=== PATIENT | male | born 1960 | race Caucasian/White ===

== ENCOUNTER 2017-06-01 09:36 | Inpatient (IN) | payer BC, MEDICAID ==
--- NOTE | 2017-06-01 10:03 | Emergency Department Record ---
History of Present Illness - General Chief Complaint: Headache Migraine Stated Complaint: HEADACHE/DIZZY Time Seen by Provider: 06/01/17 09:49 Source: Patient Mode of Arrival: Ambulatory Limitations: No limitations - History of Present Illness Initial Comments: The patient is here due to a multitude of complaints. He has had 2 weeks of intermittent ISIDRO's, dizziness, weakness, Cp off and on with SOB and balance issues. He states the head pain is mainly over the back of the head at times and does come and go. The dizziness is like the room spinning at times. The patient is coughing up some sputum at times and does have CAMPOS. He does have a hx of Afib and is on Coumadin. MD Complaint: Other Onset/Timin -: Week(s) Onset Description: Gradual Location: Neck Severity: Severe Quality: Throbbing Improves With: Nothing Worsens With: None Associated Symptoms: Nausea Treatments Prior to Arrival: Acetaminophen, Ibuprofen - Related Data Home Medications Medication Instructions Recorded Confirmed Last Taken Amlodipine Besylate [Norvasc] 10 mg PO QHS 06/01/17 06/01/17 Unknown Bumetanide 1 mg PO BID 06/01/17 06/01/17 Unknown Clopidogrel Bisulfate [Plavix] 75 mg PO QAM 06/01/17 06/01/17 06/01/17 Ezetimibe [Zetia] 10 mg PO QHS 06/01/17 06/01/17 Unknown Isosorbide Mononitrate [Imdur] 60 mg PO QAM 06/01/17 06/01/17 06/01/17 Magnesium Oxide 400 mg PO BID 06/01/17 06/01/17 06/01/17 Metformin HCl 500 mg PO QHS 06/01/17 06/01/17 Unknown Potassium Chloride 20 meq PO QAM 06/01/17 06/01/17 06/01/17 Sotalol HCl [Betapace] 80 mg PO BID 06/01/17 06/01/17 06/01/17 Warfarin Sodium [Coumadin] 1 mg PO QHS 06/01/17 06/01/17 Unknown Allergies Allergy/AdvReac Type Severity Reaction Status Date / Time NO KNOWN DRUG ALLERGY Allergy no Uncoded 06/01/17 09:44 allergies Travel Screening - Travel/Exposure Within Last 30 Days Have you traveled within the last 30 days?: No Review of Systems Constitutional: Denies: Chills, Fever Eyes: Denies: Eye discharge ENT: Denies: Congestion Respiratory: Denies: Cough, Dyspnea Past Medical History - SOCIAL HISTORY Smoking Status: Former smoker Alcohol Use: Rare Drug Use: None - RESPIRATORY Hx Respiratory Disorders: Yes Hx COPD: Yes - CARDIOVASCULAR Hx Cardio Disorders: Yes Hx Cardiac Cath: Yes Hx Hypertension: Yes Hx Irregular Heartbeat: Yes (afib) Comment:: High cholesterol - NEURO Hx Neuro Disorders: No - GI Hx GI Disorders: Yes Hx Reflux: Yes - Hx Genitourinary Disorders: No - ENDOCRINE Hx Endocrine Disorders: No - MUSCULOSKELETAL Hx Musculoskeletal Disorders: Yes Hx Back Injury: Yes - PSYCH Hx Psych Problems: No - HEMATOLOGY/ONCOLOGY Hx Hematology/Oncology Disorders: No Family Medical History Any Significant Family History?: No Physical Exam - General General Appearance: Alert, Oriented x3, Cooperative, No acute distress - Head Head exam: Atraumatic, Normocephalic, Normal inspection - Eye Eye exam: Normal appearance, PERRL, EOMI. negative: Nystagmus - ENT Throat exam: Normal inspection. negative: Tonsillar erythema, Tonsillar exudate - Neck Neck exam: Normal inspection, Full ROM. negative: Lymphadenopathy, Meningismus , Tenderness - Respiratory Respiratory exam: Normal lung sounds bilaterally. negative: Respiratory distress - Cardiovascular Cardiovascular Exam: Regular rate, Normal rhythm, Normal heart sounds - GI/Abdominal GI/Abdominal exam: Soft, Normal bowel sounds. negative: Tenderness - Back Back exam: Reports: Normal inspection, Full ROM. Denies: Muscle spasm, Rash noted, Tenderness - Neurological Neurological exam: Alert, Normal gait, Oriented X3, Reflexes normal, Other (Neg Drift and Rhomberg.). negative: Abnormal gait, Altered, Motor sensory deficit Course Vital Signs 06/01/17 09:40 Temperature 97.6 F Pulse Rate 90 Respiratory 24 Rate Blood Pressure 129/71 Pulse Ox 95 - Reevaluation(s) Reevaluation #1: The patient is doing Ok at this time. He denies any new issues or problems. I did discuss the pneumonia with him and the need for admission and he does agree to the plan. I then did discuss the case with Dr. Guillen and he does accept the patient for admission. 06/01/17 11:12 Medical Decision Making - Data Complexity MDM Data: Labs Ordered and/or Reviewed, X-Ray Ordered and/or Reviewed, EKG Ordered and/or Reviewed - Lab Data Result diagrams: 06/01/17 10:00 06/01/17 10:00 - EKG Data -: EKG Interpreted by Me EKG: No Acute Changes, Normal EKG - Radiology Data Radiology results: Report reviewed (CXR: L sided pneumonia with possible R base infiltrate also. Head CT: Neg.) Disposition Disposition: Admit Clinical Impression: Pneumonia Qualifiers: Pneumonia type: due to unspecified organism Laterality: bilateral Lung location : lower lobe of lung Qualified Code(s): J18.9 - Pneumonia, unspecified organism Disposition: Still a Patient at [facility] Decision to Admit: Admit from ER Decision to Admit Date: 06/01/17 Decision to Admit Time: 11:14 Accepting Physician: Wilmer Time Discussed w/Accepting Physician: 11:14 Condition: (2) Stable Time of Disposition: 11:14 Quality - Quality Measures Quality Measures: N/A - Blood Pressure Screening View Details: Yes Does Patient Have Any of the Following: Active Dx of HTN Blood Pressure Classification: Pre-Hypertensive BP Reading Systolic Measurement: 129 Diastolic Measurement: 71 Screening for High Blood Pressure: Patient Exclusion, Hx of HTN [[id number]]
[2017-06-01 10:14] LABS: HEMATOCRIT 40.5 % (42.0-52.0); MEAN CELL VOLUME 90.8 fl (81-97); MEAN CORPUSCULAR HEMOGLOBIN 29.1 pg (27-33); MEAN CORPUSCULAR HGB CONC 32.1 g/dl (32-36); MEAN PLATELET VOLUME 10.3 fl (7.4-10.4); PLATELET COUNT 497 K/uL (130-400); RED BLOOD COUNT 4.46 M/uL (4.40-5.70); RED CELL DISTRIBUTION WIDTH 12.6 % (11.5-14.5)
[2017-06-01 10:23] LABS: BLOOD UREA NITROGEN 10 mg/dL (6-20); CREATININE 0.7 mg/dL (0.7-1.2); EST GLOMERULAR FILTRATION RATE > 60 mL/min; WHITE BLOOD COUNT W/O DIFF 29.6 K/uL (4.2-12.2)
[2017-06-01 10:26] LABS: GLUCOSE,RANDOM 116 mg/dL (74-109)
[2017-06-01 10:29] LABS: CREATINE PHOSPHOKINASE 23 U/L (39-308)
[2017-06-01 10:31] LABS: CKMB < 1.0 ng/mL (<6.73)
[2017-06-01] MEDS ORDERED: CEFTRIAXONE SODIUM 1 GM in 0.9 % SODIUM CHLORIDE 100ML 100 ML IVPB ONE (10:43)
[2017-06-01 10:50] LABS: INR 1.7; PARTIAL THROMBOPLASTIN TIME 49.9 SECONDS (24.5-39.1); PROTHROMBIN TIME (PATIENT) 18.5 SECONDS (9.5-12.1)
[2017-06-01] MEDS ORDERED: ACETAMINOPHEN 325 MG TAB PO ONE (10:56)
[2017-06-01] MEDS ORDERED: AZITHROMYCIN 500 MG in 0.9 % SODIUM CHLORIDE 250ML 250 ML IVPB ONE (10:56)
[2017-06-01] MEDS ORDERED: ACETAMINOPHEN 500 MG TABLET PO PRN (12:23)
[2017-06-01] MEDS ORDERED: CEFTRIAXONE SODIUM 1 GM in 0.9 % SODIUM CHLORIDE 100ML 100 ML IVPB SCH (12:23)
[2017-06-01] MEDS: IBUPROFEN 600 MG TABLET PO PRN ×2 (14:33→20:34)
--- NOTE | 2017-06-01 14:58 | History & Physical ---
History of Present Illness - Date of Service Date of Service for History & Physical: 06/01/17 - History of Present Illness Admitting Diagnosis: 1. Acute Bilateral Pneumonia History of Present Illness: Mr. Hinkle is a 57 y/o male who presents with a 3 week history of of shortness lethargy, headache and feeling unwell. He says he thought symptoms would resolve on their own but noticed that after about a week there was no resolution of symptoms but rather a worsening which included, nausea, a few episodes f vomiting, chills, loss of appetite and mild cough with sputum production. The patient has a history of atrial fibrillation on warfarin, coronary artery disease with multiple stents and COPD. He recently stopped smoking about 6 months ago and is up to date on all his preventative vaccines. The patient denies any chest pain, numbness/tingling, or blurring of vision. On arrival to the ED CXR revealed a left lower lobe infiltrate consistent with pneumonia and his white count was markedly elevated. The patient was started on IV fluids and antibiotics and admitted for further management. On bedside examination in the ED this afternoon the patient appears comfortable but tired. He says that he just feels "out of it," and uncomfortable. Auscultation of the lungs does not reveal any expiratory wheezing or appreciable ronchi. Travel Screening - Travel/Exposure Within Last 30 Days Have you traveled within the last 30 days?: No - Travel/Exposure Within Last Year Have you traveled outside the [place] in the last year?: No - Additonal Travel Details Have you been exposed to anyone with a communicable illness?: No - Travel Symptoms Symptom Screening: None Review of Systems Constitutional: Denies: Chills, Fever Eyes: Denies: Eye discharge ENT: Denies: Congestion Respiratory: Denies: Cough, Dyspnea Past Medical History - SOCIAL HISTORY Smoking Status: Former smoker Alcohol Use: Rare Drug Use: None - RESPIRATORY Hx Respiratory Disorders: Yes Hx COPD: Yes - CARDIOVASCULAR Hx Cardio Disorders: Yes Hx Cardiac Cath: Yes Hx Hypertension: Yes Hx Irregular Heartbeat: Yes (afib) Comment:: High cholesterol - NEURO Hx Neuro Disorders: No - GI Hx GI Disorders: Yes Hx Reflux: Yes - Hx Genitourinary Disorders: No - ENDOCRINE Hx Endocrine Disorders: No - MUSCULOSKELETAL Hx Musculoskeletal Disorders: Yes Hx Back Injury: Yes - PSYCH Hx Psych Problems: No - HEMATOLOGY/ONCOLOGY Hx Hematology/Oncology Disorders: No Family Medical History Any Significant Family History?: No H&P Meds/Allergies - Allergies Allergies: Allergies Allergy/AdvReac Type Severity Reaction Status Date / Time NO KNOWN DRUG ALLERGY Allergy no Uncoded 06/01/17 09:44 allergies - Home Medications Home Medications Medication Instructions Recorded Confirmed Last Taken Amlodipine Besylate [Norvasc] 10 mg PO QHS 06/01/17 06/01/17 Unknown Bumetanide 1 mg PO BID 06/01/17 06/01/17 Unknown Clopidogrel Bisulfate [Plavix] 75 mg PO QAM 06/01/17 06/01/17 06/01/17 Ezetimibe [Zetia] 10 mg PO QHS 06/01/17 06/01/17 Unknown Isosorbide Mononitrate [Imdur] 60 mg PO QAM 06/01/17 06/01/17 06/01/17 Magnesium Oxide 400 mg PO BID 06/01/17 06/01/17 06/01/17 Metformin HCl 500 mg PO QHS 06/01/17 06/01/17 Unknown Potassium Chloride 20 meq PO QAM 06/01/17 06/01/17 06/01/17 Sotalol HCl [Betapace] 80 mg PO BID 06/01/17 06/01/17 06/01/17 Warfarin Sodium [Coumadin] 1 mg PO QHS 06/01/17 06/01/17 Unknown - Active Medications Active Medications: Current Medications Acetaminophen (Tylenol 500mg Tab) 650 mg PO Q6H PRN PRN Reason: PAIN/TEMP Amlodipine Besylate (Norvasc) 10 mg PO QHS [facility] Bumetanide (Bumex) 1 mg PO BID [facility] Clopidogrel Bisulfate (Plavix) 75 mg PO QAM [facility] Ezetimibe (Zetia) 10 mg PO QHS [facility] Azithromycin 500 mg/ Sodium (Chloride) 250 mls @ 250 mls/hr IVPB Q24H [facility] Stop: 06/07/17 11:01 Ceftriaxone Sodium 1 gm/ (Sodium Chloride) 100 mls @ 100 mls/hr IVPB Q12H [facility] Stop: 06/06/17 22:01 Ibuprofen (Motrin 600mg) 600 mg PO Q6H PRN PRN Reason: Pain - Moderate (5-7) Last Admin: 03/03/18 14:33 Dose: 600 mg Isosorbide Mononitrate (Imdur) 60 mg PO QAM [facility] Magnesium Oxide (Mag Ox) 400 mg PO BID [facility] Metformin HCl (Glucophage Ir) 500 mg PO QHS [facility] Pantoprazole Sodium (Protonix) 80 mg PO QHS [facility] Potassium Chloride (Klor-Con) 20 meq PO QAM [facility] Sotalol HCl (Betapace) 80 mg PO BID [facility] Warfarin Sodium (Coumadin) 1 mg PO QHS [facility] Physical Exam - Vital Signs Vital Signs: Vital Signs - Last 24 Hrs Temp Pulse Resp BP Pulse Ox 06/01/17 12:57 24 06/01/17 12:23 98.3 F 80 18 148/84 98 - General General Appearance: Alert, Oriented x3, Cooperative, No acute distress Limitations: No limitations - Head Head exam: Atraumatic, Normocephalic, Normal inspection - Eye Eye exam: Normal appearance, PERRL, EOMI. negative: Nystagmus - ENT Throat exam: Normal inspection. negative: Tonsillar erythema, Tonsillar exudate - Neck Neck exam: Normal inspection, Full ROM. negative: Lymphadenopathy, Meningismus , Tenderness - Respiratory Respiratory exam: Normal lung sounds bilaterally. negative: Respiratory distress - Cardiovascular Cardiovascular Exam: Regular rate, Normal rhythm, Normal heart sounds - GI/Abdominal GI/Abdominal exam: Soft, Normal bowel sounds. negative: Tenderness - Back Back exam: Reports: Normal inspection, Full ROM. Denies: Muscle spasm, Rash noted, Tenderness - Neurological Neurological exam: Alert, Normal gait, Oriented X3, Reflexes normal, Other (Neg Drift and Rhomberg.). negative: Abnormal gait, Altered, Motor sensory deficit Results - Labs Result Diagrams: 06/01/17 10:00 06/01/17 10:00 VTE H&P Assessment - Risk for VTE Risk for VTE: Yes Risk Level: High Risk Assessment Date: 06/01/17 Risk Assessment Time: 14:58 VTE Orders Placed or Will Be Placed: Yes Plan - Inpatient Certification Inpatient Certification: Admit to inpatient care: Based on my medical assessment, after consideration of patient's risk factors (age, co-morbidities and patient presenting symptoms and acuity), I expect that this patient will remain in the hospital greater than or equal to two midnights and that the services needed warrant inpatient care because: Patient Risk Factors: CAP, A fib Estimated length of stay: [] The patient may reasonably be expected to be discharged or transferred to a hospital within 96 hours after admission to [facility]. I certify that my determination is in accordance with my understanding of Medicare requirements for reasonable and necessary inpatient services. 06/01/17 14:59 - Detailed Diagnosis and Plan (1) Community acquired pneumonia Current Visit: Yes Status: Acute Base Code: J18.9 - PNEUMONIA, UNSPECIFIED ORGANISM Comment: 06/01 - CXR shows left lower lobe infiltrate. WBC 29K - started on Rocephin/Zithromax IV, may use and extended spectrum quinolone ond ischarge. IVF bolus 1/2 liter once, Ideally sputum gram stain, urine for strep and legionella antigen. - Acetaminophen PRN for fever, repeat labs in the morning. - repeat chest xray 2 weeks after discharge. 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 - check PT/INR on next labs. (3) CAD (coronary artery disease) Current Visit: Yes Status: Acute Qualifiers: Coronary Disease-Associated Artery/Lesion type: [place] artery [place] vs. transplanted heart: [place] heart Associated angina: without angina Qualified Code(s): I25.10 - Atherosclerotic heart disease of [place] coronary artery without angina pectoris Base Code: I25.10 - ATHSCL HEART DISEASE OF [place] CORONARY ARTERY W/O ANG PCTRS Comment: 06/01 - coronary artery disease x 3 stents, last stent placed in 2015. - ECG shows NSR, troponin x 1 negative, CXR negative. - resume home meds; ASA,Plavix, Imdur - continuous cardiac monitoring (4) HLD (hyperlipidemia) Current Visit: Yes Status: Chronic Qualifiers: Hyperlipidemia type: unspecified Qualified Code(s): E78.5 - Hyperlipidemia , unspecified Base Code: E78.5 - HYPERLIPIDEMIA, UNSPECIFIED Comment: 06/01 - cont Zetia daily. (5) COPD (chronic obstructive pulmonary disease) Current Visit: Yes Status: Acute Base Code: J44.9 - CHRONIC OBSTRUCTIVE PULMONARY DISEASE, UNSPECIFIED Comment: 06/01 - bronchodilator nebs Q4H PRN, resume Dulera and Advair. - pt wants to use home inhalers and will bring in. - oxygen PRN to maintain sats > 92% (6) DVT prophylaxis Current Visit: Yes Status: Acute Base Code: [id number] - Comment: 06/01 - currently on full anticoagulation for a fib (7) Full code status Current Visit: Yes Status: Acute Base Code: Z78.9 - OTHER SPECIFIED HEALTH STATUS Comment: 06/01 - FULL CODE (8) HTN (hypertension) Current Visit: Yes Status: Acute Base Code: I10 - ESSENTIAL (PRIMARY) HYPERTENSION Comment: 06/01 - resume Norvasc - Disposition Will likely be admitted for the next 3 days on IV abx.
[2017-06-01] MEDS ORDERED: ALBUTEROL SULFATE (0.083%) 2.5 MG/3 ML NEB INH PRN (15:14)
[2017-06-01] MEDS: CEFTRIAXONE SODIUM 1 GM in 0.9 % SODIUM CHLORIDE 100ML 100 ML IVPB SCH (21:16)
[2017-06-01] MEDS: METFORMIN 500 MG TABLET PO SCH (21:22)
[2017-06-01] MEDS: SOTALOL HCL 80 MG TABLET PO SCH (21:23)
[2017-06-01] MEDS: BUMETANIDE 1 MG TABLET PO SCH (21:23)
[2017-06-01] MEDS: MAGNESIUM OXIDE 400 MG TABLET PO SCH (21:23)
[2017-06-01] MEDS: AMLODIPINE BESYLATE 5MG TAB PO SCH (21:24)
[2017-06-01] MEDS: WARFARIN 1 MG TABLET PO SCH (21:24)
[2017-06-01] MEDS: PANTOPRAZOLE SODIUM 40 MG TABLET PO SCH (21:26)
[2017-06-01] MEDS: EZETIMIBE 10 MG TABLET PO SCH (21:26)
[2017-06-02] MEDS: BREO (FLUTICASONE/VILANTEROL) 200MCG/25MCG INHALER INH SCH (06:00)
[2017-06-02 07:13] LABS: HEMATOCRIT 40.9 % (42.0-52.0); HEMOGLOBIN 13.1 gm/dl (14.0-18.0); MEAN CELL VOLUME 91.5 fl (81-97); MEAN CORPUSCULAR HEMOGLOBIN 29.3 pg (27-33); MEAN PLATELET VOLUME 10.8 fl (7.4-10.4); RED BLOOD COUNT 4.47 M/uL (4.40-5.70); RED CELL DISTRIBUTION WIDTH 12.7 % (11.5-14.5)
[2017-06-02 07:23] LABS: WHITE BLOOD COUNT W/O DIFF 29.9 K/uL (4.2-12.2)
[2017-06-02 07:34] LABS: ALB/GLOB RATIO 0.8 (1.1-1.8); ALBUMIN 3.2 g/dL (4.0-5.0); ALKALINE PHOSPHATASE 107 U/L (40-129); ALT/SGPT 33 U/L (<41); AST/SGOT 18 U/L (10.0-50.0); BLOOD UREA NITROGEN 10 mg/dL (6-20); CREATININE 0.7 mg/dL (0.7-1.2); EST GLOMERULAR FILTRATION RATE > 60 mL/min; GLUCOSE,RANDOM 119 mg/dL (74-109); TOTAL PROTEIN 7.2 g/dL (6.6-8.7)
[2017-06-02] MEDS ORDERED: 0.9 % SODIUM CHLORIDE 1000ML 1,000 ML IV ONE (07:58)
[2017-06-02 08:06] LABS: PLATELET COUNT 433 K/uL (130-400)
[2017-06-02 08:07] LABS: PLATELET ESTIMATE INCREASED (NORMAL)
[2017-06-02] MEDS: IBUPROFEN 600 MG TABLET PO PRN ×2 (08:53→16:00)
[2017-06-02] MEDS: MAGNESIUM OXIDE 400 MG TABLET PO SCH ×2 (09:13→21:16)
[2017-06-02] MEDS: CLOPIDOGREL 75MG TABLET PO SCH (09:13)
[2017-06-02] MEDS: POTASSIUM CHLORIDE 10 MEQ TAB PO SCH (09:14)
[2017-06-02] MEDS: ISOSORBIDE MONONITRATE 60 MG TAB.ER.24H PO SCH (09:14)
[2017-06-02] MEDS: BUMETANIDE 1 MG TABLET PO SCH ×2 (09:14→21:15)
[2017-06-02] MEDS: SOTALOL HCL 80 MG TABLET PO SCH ×2 (09:14→21:14)
[2017-06-02] MEDS: CEFTRIAXONE SODIUM 1 GM in 0.9 % SODIUM CHLORIDE 100ML 100 ML IVPB SCH ×2 (09:26→21:06)
[2017-06-02] MEDS ORDERED: AZITHROMYCIN 500 MG in 0.9 % SODIUM CHLORIDE 250ML 250 ML IVPB SCH (11:00)
[2017-06-02] MEDS ORDERED: ACETAMINOPHEN 500 MG TABLET PO PRN (12:05)
--- NOTE | 2017-06-02 12:30 | Physician Progress Note ---
Subjective - Date Date of Physician Progress Note: 06/02/17 - Subjective Subjective Comment: Patient is much improved today. He is awake, alert and oriented. Still complains of headache. Objective - Vital Signs Vital Signs: Vital Signs - Last 24 Hrs Temp Pulse Pulse Resp BP Pulse Ox 06/02/17 09:00 20 06/02/17 06:00 84 20 96 06/02/17 05:00 98.0 F 74 18 137/67 06/01/17 20:43 81 18 06/01/17 20:39 98.6 F 81 18 126/69 93 L 06/01/17 13:00 98.3 F 80 18 148/84 98 06/01/17 12:57 24 - General General Appearance: Alert, Oriented x3, Cooperative, No acute distress Limitations: No limitations - Head Head exam: Atraumatic, Normocephalic, Normal inspection - Eye Eye exam: Normal appearance, PERRL, EOMI. negative: Nystagmus - ENT Throat exam: Normal inspection. negative: Tonsillar erythema, Tonsillar exudate - Neck Neck exam: Normal inspection, Full ROM. negative: Lymphadenopathy, Meningismus , Tenderness - Respiratory Respiratory exam: Normal lung sounds bilaterally. negative: Respiratory distress - Cardiovascular Cardiovascular Exam: Regular rate, Normal rhythm, Normal heart sounds - GI/Abdominal GI/Abdominal exam: Soft, Normal bowel sounds. negative: Tenderness - Back Back exam: Reports: Normal inspection, Full ROM. Denies: Muscle spasm, Rash noted, Tenderness - Neurological Neurological exam: Alert, Normal gait, Oriented X3, Reflexes normal, Other (Neg Drift and Rhomberg.). negative: Abnormal gait, Altered, Motor sensory deficit Assessment and Plan - Assessment and Plan (1) Community acquired pneumonia Current Visit: Yes Status: Acute Base Code: J18.9 - PNEUMONIA, UNSPECIFIED ORGANISM Comment: 06/02 - CXR shows left lower lobe infiltrate. WBC 29K --> 29K - started on Rocephin/Zithromax to PO, may use and extended spectrum quinolone ond discharge. IVF bolus 1/2 liter once, Ideally sputum gram stain, urine for strep and legionella antigen. - Acetaminophen PRN for fever,Ibuprofen for headaches, repeat labs in the morning. - repeat chest xray 2 weeks after discharge. 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 - check PT/INR on next labs. (3) CAD (coronary artery disease) Current Visit: Yes Status: Acute Qualifiers: Coronary Disease-Associated Artery/Lesion type: [place] artery [place] vs. transplanted heart: [place] heart Associated angina: without angina Qualified Code(s): I25.10 - Atherosclerotic heart disease of [place] coronary artery without angina pectoris Base Code: I25.10 - ATHSCL HEART DISEASE OF [place] CORONARY ARTERY W/O ANG PCTRS Comment: 06/02 - coronary artery disease x 3 stents, last stent placed in 2015. - ECG shows NSR, troponin x 1 negative, CXR negative. - resume home meds; ASA,Plavix, Imdur - continuous cardiac monitoring (4) HLD (hyperlipidemia) Current Visit: Yes Status: Chronic Qualifiers: Hyperlipidemia type: unspecified Qualified Code(s): E78.5 - Hyperlipidemia , unspecified Base Code: E78.5 - HYPERLIPIDEMIA, UNSPECIFIED Comment: 06/02 - cont Zetia daily. (5) COPD (chronic obstructive pulmonary disease) Current Visit: Yes Status: Acute Base Code: J44.9 - CHRONIC OBSTRUCTIVE PULMONARY DISEASE, UNSPECIFIED Comment: 06/01 - bronchodilator nebs Q4H PRN, resume Dulera and Advair. - pt wants to use home inhalers and will bring in. - oxygen PRN to maintain sats > 92% (6) DVT prophylaxis Current Visit: Yes Status: Acute Base Code: [id number] - Comment: 06/02 - currently on full anticoagulation for a fib (7) Full code status Current Visit: Yes Status: Acute Base Code: Z78.9 - OTHER SPECIFIED HEALTH STATUS Comment: 06/01 - FULL CODE (8) HTN (hypertension) Current Visit: Yes Status: Acute Base Code: I10 - ESSENTIAL (PRIMARY) HYPERTENSION Comment: 06/02 - cont Norvasc - Disposition Disposition: Will likely be d/cd tomorrow pending CBC w/diff showing down trend in WBC Results - Labs Result Diagrams: 06/02/17 06:20 06/02/17 06:20 Labs Last 24 Hours: Laboratory Results - last 24 hr 06/02/17 06/02/17 06:20 06:20 WBC 29.9 H* RBC 4.47 Hgb 13.1 L Hct 40.9 L MCV 91.5 MCH 29.3 MCHC 32.0 RDW 12.7 Plt Count 433 H MPV 10.8 H Neutrophils % 81.0 H Band Neutrophils % 3.0 Eosinophils % Not Reportable Basophils % Not Reportable Lymphocytes 8.0 L Monocytes 8.0 Platelet Estimate Increased RBC Morphology Normal Sodium 136 Potassium 3.8 Chloride 94 L Carbon Dioxide 28.0 Anion Gap 14.0 BUN 10 Creatinine 0.7 Estimated GFR > 60 Random Glucose 119 H Calcium 9.1 Total Bilirubin 0.20 AST 18 ALT 33 Alkaline Phosphatase 107 Total Protein 7.2 Albumin 3.2 L Globulin 4.0 Albumin/Globulin Ratio 0.8 L DVT/PE Assessment - Risk for VTE Risk for VTE: No Risk Level: High Risk Assessment Date: 06/01/17 Risk Assessment Time: 14:58 VTE Orders Placed or Will Be Placed: Yes - Active Medicaitons Current Medications: Current Medications Acetaminophen (Tylenol 500mg Tab) 1,000 mg PO Q6H PRN PRN Reason: PAIN/TEMP Albuterol Sulfate () 2.5 mg INH RESP.Q4H PRN PRN Reason: DIFFICULTY IN BREATHING Amlodipine Besylate (Norvasc) 10 mg PO QHS [facility] Last Admin: 06/01/17 21:24 Dose: 10 mg Azithromycin (Zithromax) 500 mg PO DAILY [facility] Bumetanide (Bumex) 1 mg PO BID [facility] Last Admin: 06/02/17 09:14 Dose: Not Given [facility]) [facility] Last Admin: 06/02/17 09:13 Dose: Not Given Ezetimibe (Zetia) 10 mg PO QHS [facility] Last Admin: 06/01/17 21:26 Dose: 10 mg Ceftriaxone Sodium 1 gm/ (Sodium Chloride) 100 mls @ 100 mls/hr IVPB Q12H [facility] Stop: 06/06/17 22:01 Last Infusion: 06/02/17 09:58 Dose: Infused Ibuprofen (Motrin 600mg) 600 mg PO Q6H PRN PRN Reason: Pain - Moderate (5-7) Last Admin: 06/02/17 08:53 Dose: 600 mg Isosorbide Mononitrate (Imdur) [facility] Last Admin: 06/02/17 09:14 Dose: Not Given Magnesium Oxide (Mag Ox) 400 mg PO BID [facility] Last Admin: 06/02/17 09:13 Dose: Not Given Metformin HCl (Glucophage Ir) 500 mg PO QHS [facility] Last Admin: 06/01/17 21:22 Dose: 500 mg Pantoprazole Sodium (Protonix) 80 mg PO QHS [facility] Last Admin: 06/01/17 21:26 Dose: 80 mg Potassium Chloride (Klor-Con) 20 meq PO [facility] Last Admin: 06/02/17 09:14 Dose: Not Given Sotalol HCl (Betapace) 80 mg PO BID [facility] Last Admin: 06/02/17 09:14 Dose: Not Given Warfarin Sodium (Coumadin) 1 mg PO QHS [facility] Last Admin: 06/01/17 21:24 Dose: 1 mg AMI Plan - Labs Result Diagrams: 06/02/17 06:20 06/02/17 06:20
[2017-06-02] MEDS: AZITHROMYCIN 500 MG TABLET PO SCH (12:52)
[2017-06-02] MEDS: METFORMIN 500 MG TABLET PO SCH (21:13)
[2017-06-02] MEDS: PANTOPRAZOLE SODIUM 40 MG TABLET PO SCH (21:14)
[2017-06-02] MEDS: WARFARIN 1 MG TABLET PO SCH (21:15)
[2017-06-02] MEDS: EZETIMIBE 10 MG TABLET PO SCH (21:16)
[2017-06-02] MEDS: AMLODIPINE BESYLATE 5MG TAB PO SCH (21:16)
[2017-06-03] MEDS: IBUPROFEN 600 MG TABLET PO PRN ×3 (05:33→20:18)
[2017-06-03] MEDS: BREO (FLUTICASONE/VILANTEROL) 200MCG/25MCG INHALER INH SCH (05:36)
[2017-06-03 06:46] LABS: HEMATOCRIT 36.2 % (42.0-52.0); HEMOGLOBIN 11.8 gm/dl (14.0-18.0); MEAN CELL VOLUME 91.6 fl (81-97); MEAN CORPUSCULAR HGB CONC 32.6 g/dl (32-36); MEAN PLATELET VOLUME 10.4 fl (7.4-10.4); PLATELET COUNT 486 K/uL (130-400); RED BLOOD COUNT 3.95 M/uL (4.40-5.70); RED CELL DISTRIBUTION WIDTH 12.4 % (11.5-14.5)
[2017-06-03 07:10] LABS: MEAN CORPUSCULAR HEMOGLOBIN 29.8 pg (27-33); WHITE BLOOD COUNT W/O DIFF 21.7 K/uL (4.2-12.2)
--- NOTE | 2017-06-03 07:16 | RADIOLOGY REPORT ---
EXAM: CHEST, TWO VIEWS HISTORY: DIFFICULTY BREATHING. TECHNIQUE: Frontal and lateral views of the chest were performed. FINDINGS: The heart size is normal. There is bilateral lower lobe infiltrates. No pleural effusion. The osseous structures are normal. IMPRESSION: BILATERAL LOWER LOBE INFILTRATES CONSISTENT WITH PNEUMONIA. JOB NUMBER: [id number] MTDD
--- NOTE | 2017-06-03 07:18 | CT SCAN REPORT ---
EXAM: CT OF THE BRAIN WITHOUT CONTRAST HISTORY: HEADACHE. TECHNIQUE: Sequential axial images were obtained from the foramen magnum to the vertex without contrast administration. FINDINGS: The brain volume is normal. There is no large territorial infarct, hemorrhage, mass effect, or midline shift. No extraaxial fluid collection. The orbits, paranasal sinuses and mastoid air cells are normal. IMPRESSION: NO ACUTE INTRACRANIAL ABNORMALITY IS APPRECIATED. J[facility]BER: [id number] [facility]
[2017-06-03] MEDS: 0.9 % SODIUM CHLORIDE 1000ML 1,000 ML IV SCH ×3 (08:58→23:57)
[2017-06-03] MEDS: SOTALOL HCL 80 MG TABLET PO SCH ×2 (09:11→21:23)
[2017-06-03] MEDS: POTASSIUM CHLORIDE 10 MEQ TAB PO SCH (09:12)
[2017-06-03] MEDS: ISOSORBIDE MONONITRATE 60 MG TAB.ER.24H PO SCH (09:12)
[2017-06-03] MEDS: CLOPIDOGREL 75MG TABLET PO SCH (09:14)
[2017-06-03] MEDS: AZITHROMYCIN 500 MG TABLET PO SCH (09:14)
[2017-06-03] MEDS: MAGNESIUM OXIDE 400 MG TABLET PO SCH ×2 (09:14→21:24)
[2017-06-03] MEDS: CEFTRIAXONE SODIUM 1 GM in 0.9 % SODIUM CHLORIDE 100ML 100 ML IVPB SCH ×2 (09:14→21:25)
[2017-06-03] MEDS: BUMETANIDE 1 MG TABLET PO SCH ×2 (09:22→16:03)
[2017-06-03 15:13] LABS: PROTHROMBIN TIME (PATIENT) 21.5 SECONDS (9.5-12.1)
--- NOTE | 2017-06-03 19:22 | Physician Progress Note ---
Subjective - Date Date of Physician Progress Note: 06/03/17 - Subjective Subjective Comment: The patient is doing much better today. He says that he feels much better after receiving IV fluids yesterday. Objective - Vital Signs Vital Signs: Vital Signs - Last 24 Hrs Temp Pulse Pulse Resp BP Pulse Ox 06/03/17 13:00 98.1 F 68 18 114/62 94 L 06/03/17 09:00 79 20 06/03/17 05:36 76 20 06/03/17 05:00 98.4 F 79 16 135/71 94 L 06/02/17 21:00 97.7 F 72 16 102/56 92 L 06/02/17 20:00 71 18 06/02/17 19:30 66 20 - General General Appearance: Alert, Oriented x3, Cooperative, No acute distress Limitations: No limitations - Head Head exam: Atraumatic, Normocephalic, Normal inspection - Eye Eye exam: Normal appearance, PERRL, EOMI. negative: Nystagmus - ENT Throat exam: Normal inspection. negative: Tonsillar erythema, Tonsillar exudate - Neck Neck exam: Normal inspection, Full ROM. negative: Lymphadenopathy, Meningismus , Tenderness - Respiratory Respiratory exam: Normal lung sounds bilaterally. negative: Respiratory distress - Cardiovascular Cardiovascular Exam: Regular rate, Normal rhythm, Normal heart sounds - GI/Abdominal GI/Abdominal exam: Soft, Normal bowel sounds. negative: Tenderness - Back Back exam: Reports: Normal inspection, Full ROM. Denies: Muscle spasm, Rash noted, Tenderness - Neurological Neurological exam: Alert, Normal gait, Oriented X3, Reflexes normal, Other (Neg Drift and Rhomberg.). negative: Abnormal gait, Altered, Motor sensory deficit Assessment and Plan - Assessment and Plan (1) Community acquired pneumonia Current Visit: Yes Status: Acute Base Code: J18.9 - PNEUMONIA, UNSPECIFIED ORGANISM Comment: 06/03 - CXR shows left lower lobe infiltrate. WBC 29K --> 29K--> 21 - started on Rocephin/Zithromax to PO, may use and extended spectrum quinolone ond discharge. IVF bolus 1 liter. - Acetaminophen PRN for fever,Ibuprofen for headaches, repeat labs in the morning. - repeat chest xray 2 weeks after discharge. Check labs again in the morning. 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 - check PT/INR on next labs. (3) CAD (coronary artery disease) Current Visit: Yes Status: Acute Qualifiers: Coronary Disease-Associated Artery/Lesion type: [place] artery [place] vs. transplanted heart: [place] heart Associated angina: without angina Qualified Code(s): I25.10 - Atherosclerotic heart disease of [place] coronary artery without angina pectoris Base Code: I25.10 - ATHSCL HEART DISEASE OF [place] CORONARY ARTERY W/O ANG PCTRS Comment: 06/03 - coronary artery disease x 3 stents, last stent placed in 2015. - ECG shows NSR, troponin x 1 negative, CXR negative. - resume home meds; ASA,Plavix, Imdur - continuous cardiac monitoring (4) HLD (hyperlipidemia) Current Visit: Yes Status: Chronic Qualifiers: Hyperlipidemia type: unspecified Qualified Code(s): E78.5 - Hyperlipidemia , unspecified Base Code: E78.5 - HYPERLIPIDEMIA, UNSPECIFIED Comment: 06/03 - cont Zetia daily. (5) COPD (chronic obstructive pulmonary disease) Current Visit: Yes Status: Acute Base Code: J44.9 - CHRONIC OBSTRUCTIVE PULMONARY DISEASE, UNSPECIFIED Comment: 06/03 - bronchodilator nebs Q4H PRN, resume Dulera and Advair. - pt wants to use home inhalers and will bring in. - oxygen PRN to maintain sats > 92% (6) HTN (hypertension) Current Visit: Yes Status: Acute Base Code: I10 - ESSENTIAL (PRIMARY) HYPERTENSION Comment: 06/03 - cont Norvasc (7) DVT prophylaxis Current Visit: Yes Status: Acute Base Code: [id number] - Comment: 06/03 - currently on full anticoagulation for a fib (8) Full code status Current Visit: Yes Status: Acute Base Code: Z78.9 - OTHER SPECIFIED HEALTH STATUS Comment: 06/03 - FULL CODE - Disposition Disposition: Repeat am labs. Likely d/c tomorrow morning. Results - Labs Result Diagrams: 06/03/17 06:30 06/02/17 06:20 Labs Last 24 Hours: Laboratory Results - last 24 hr 06/03/17 06/03/17 06:30 06:30 WBC 21.7 H* RBC 3.95 L Hgb 11.8 L Hct 36.2 L MCV 91.6 MCH 29.8 MCHC 32.6 RDW 12.4 Plt Count 486 H MPV 10.4 Neutrophils % 78.0 Band Neutrophils % 1.0 Eosinophils % Not Reportable Basophils % Not Reportable Lymphocytes 10.0 L Monocytes 11.0 H Basophils 0.0 Eosinophil Count 0.0 PT 21.5 H INR 2.0 DVT/PE Assessment - Risk for VTE Risk for VTE: No Risk Level: High Risk Assessment Date: 06/01/17 Risk Assessment Time: 14:58 VTE Orders Placed or Will Be Placed: Yes - Active Medicaitons Current Medications: Current Medications Acetaminophen (Tylenol 500mg Tab) 1,000 mg PO Q6H PRN PRN Reason: PAIN/TEMP Albuterol Sulfate () 2.5 mg INH RESP.Q4H PRN PRN Reason: DIFFICULTY IN BREATHING Last Admin: 06/02/17 19:30 Dose: 2.5 mg Amlodipine Besylate (Norvasc) 10 mg PO QHS [facility] Last Admin: 06/02/17 21:16 Dose: 10 mg Azithromycin (Zithromax) 500 mg PO DAILY [facility] Last Admin: 06/03/17 09:14 Dose: 500 mg Bumetanide (Bumex) 1 mg PO BIDDIUR [facility] Last Admin: 06/03/17 16:03 Dose: 1 mg [facility]idog[facility] ([facility]avix) [facility] [place] Last Admin: 06/03/17 09:14 Dose: 75 mg Ezetimibe (Zetia) 10 mg PO QHS [facility] Last Admin: 06/02/17 21:16 Dose: 10 mg Ceftriaxone Sodium 1 gm/ (Sodium Chloride) 100 mls @ 100 mls/hr IVPB Q12H [facility] Stop: 06/06/17 22:01 Last Infusion: 06/03/17 10:05 Dose: Infused Sodium Chloride () 1,000 mls @ 125 mls/hr IV .Q8H [facility] Last Infusion: 06/03/17 19:00 Dose: Infused Ibuprofen (Motrin 600mg) 600 mg PO Q6H PRN PRN Reason: Pain - Moderate (5-7) Last Admin: 06/03/17 16:03 Dose: 600 mg Isosorbide Mononitrate (Imdur) 60 mg PO QAM [facility] Last Admin: 06/03/17 09:12 Dose: 60 mg Magnesium Oxide (Mag Ox) 400 mg PO BID [facility] Last Admin: 06/03/17 09:14 Dose: 400 mg Metformin HCl (Glucophage Ir) 500 mg PO QHS [facility] Last Admin: 06/02/17 21:13 Dose: 500 mg Pantoprazole Sodium (Protonix) 40 mg PO BID [facility] Potassium Chloride (Klor-Con) 20 meq PO QHS [facility] Sotalol HCl (Betapace) 80 mg PO BID [facility] Last Admin: 06/03/17 09:11 Dose: 80 mg Warfarin Sodium (Coumadin) 1 mg PO QHS [facility] Last Admin: 06/02/17 21:15 Dose: 1 mg AMI Plan - Labs Result Diagrams: 06/03/17 06:30 06/02/17 06:20
[2017-06-03] MEDS: METFORMIN 500 MG TABLET PO SCH (21:23)
[2017-06-03] MEDS: WARFARIN 1 MG TABLET PO SCH (21:23)
[2017-06-03] MEDS: PANTOPRAZOLE SODIUM 40 MG TABLET PO SCH (21:23)
[2017-06-03] MEDS: EZETIMIBE 10 MG TABLET PO SCH (21:25)
[2017-06-03] MEDS: AMLODIPINE BESYLATE 5MG TAB PO SCH (21:25)
[2017-06-03] MEDS ORDERED: POTASSIUM CHLORIDE 10 MEQ TAB PO SCH (22:00)
[2017-06-04] MEDS: BREO (FLUTICASONE/VILANTEROL) 200MCG/25MCG INHALER INH SCH (06:23)
[2017-06-04 06:58] LABS: HEMATOCRIT 38.9 % (42.0-52.0); HEMOGLOBIN 12.5 gm/dl (14.0-18.0); MEAN CORPUSCULAR HGB CONC 32.1 g/dl (32-36); MEAN PLATELET VOLUME 10.2 fl (7.4-10.4); PLATELET COUNT 555 K/uL (130-400); RED BLOOD COUNT 4.23 M/uL (4.40-5.70); RED CELL DISTRIBUTION WIDTH 12.6 % (11.5-14.5)
[2017-06-04 06:59] LABS: MEAN CORPUSCULAR HEMOGLOBIN 29.5 pg (27-33)
[2017-06-04] MEDS: BUMETANIDE 1 MG TABLET PO SCH (09:50)
[2017-06-04] MEDS: MAGNESIUM OXIDE 400 MG TABLET PO SCH (09:50)
[2017-06-04] MEDS: 0.9 % SODIUM CHLORIDE 1000ML 1,000 ML IV SCH (09:50)
[2017-06-04] MEDS: ISOSORBIDE MONONITRATE 60 MG TAB.ER.24H PO SCH (09:51)
[2017-06-04] MEDS: SOTALOL HCL 80 MG TABLET PO SCH (09:51)
[2017-06-04] MEDS: PANTOPRAZOLE SODIUM 40 MG TABLET PO SCH (09:51)
[2017-06-04] MEDS: CLOPIDOGREL 75MG TABLET PO SCH (09:51)
[2017-06-04] MEDS: AZITHROMYCIN 500 MG TABLET PO SCH (09:51)
[2017-06-04] MEDS: CEFTRIAXONE SODIUM 1 GM in 0.9 % SODIUM CHLORIDE 100ML 100 ML IVPB SCH (09:52)
--- NOTE | 2017-06-04 10:12 | Discharge Summary ---
Providers Discharge Summary Date: 06/04/17 Date of admission: 06/01/17 12:12 Expected Date of Discharge: 06/04/17 Attending physician: ALBERTO MARQUES Primary care physician: TSEPHANIE TRIVEDI M.D. Physical Exam - Vital Signs Vital Signs: Vital Signs - Last 24 Hrs Temp Pulse Pulse Resp BP Pulse Ox 06/04/17 09:00 20 06/04/17 06:23 76 20 94 L 06/04/17 05:00 97.7 F 73 16 127/75 90 L 06/03/17 21:00 98.6 F 78 16 141/75 93 L 06/03/17 13:00 98.1 F 68 18 114/62 94 L - General General Appearance: Alert, Oriented x3, Cooperative, No acute distress Limitations: No limitations - Head Head exam: Atraumatic, Normocephalic, Normal inspection - Eye Eye exam: Normal appearance, PERRL, EOMI. negative: Nystagmus - ENT Throat exam: Normal inspection. negative: Tonsillar erythema, Tonsillar exudate - Neck Neck exam: Normal inspection, Full ROM. negative: Lymphadenopathy, Meningismus , Tenderness - Respiratory Respiratory exam: Normal lung sounds bilaterally. negative: Respiratory distress - Cardiovascular Cardiovascular Exam: Regular rate, Normal rhythm, Normal heart sounds - GI/Abdominal GI/Abdominal exam: Soft, Normal bowel sounds. negative: Tenderness - Back Back exam: Reports: Normal inspection, Full ROM. Denies: Muscle spasm, Rash noted, Tenderness - Neurological Neurological exam: Alert, Normal gait, Oriented X3, Reflexes normal, Other (Neg Drift and Rhomberg.). negative: Abnormal gait, Altered, Motor sensory deficit Hospitalization - Hospitalization Admission Diagnosis: 1. Acute Bilateral Pneumonia - Problem List/Discharge Diagnosis (1) Community acquired pneumonia Status: Acute Base Code: J18.9 - PNEUMONIA, UNSPECIFIED ORGANISM Comment: 09/16: - CXR shows left lower lobe infiltrate. WBC 29K --> 29K--> 21 - started on Rocephin/Zithromax to PO, changed to cefdinir 300mg q12h and azithromycin 500 mg for 1.5 more days. - Acetaminophen PRN for fever,Ibuprofen for headaches, repeat labs in the morning. - repeat chest xray 2 weeks after discharge. Labs continued to improve this morning, will plan d/c home today. 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 - PT/INR therapeutic (3) CAD (coronary artery disease) Status: Acute Discharge Diagnosis: Coronary Disease-Associated Artery/Lesion type: [place] artery [place] vs. transplanted heart: [place] heart Associated angina: without angina Qualified Code(s): I25.10 - Atherosclerotic heart disease of [place] coronary artery without angina pectoris Base Code: I25.10 - ATHSCL HEART DISEASE OF [place] CORONARY ARTERY W/O ANG PCTRS Comment: 06/04/17: - coronary artery disease x 3 stents, last stent placed in 2015. - ECG shows NSR, troponin x 1 negative, CXR negative. - resume home meds; ASA,Plavix, Imdur - plan to d/c home today (4) HLD (hyperlipidemia) Status: Chronic Discharge Diagnosis: Hyperlipidemia type: unspecified Qualified Code(s): E78.5 - Hyperlipidemia , unspecified Base Code: E78.5 - HYPERLIPIDEMIA, UNSPECIFIED Comment: 06/04/17: - cont Zetia daily. (5) COPD (chronic obstructive pulmonary disease) Status: Acute Base Code: J44.9 - CHRONIC OBSTRUCTIVE PULMONARY DISEASE, UNSPECIFIED Comment: 06/04/17: - bronchodilator nebs Q4H PRN, resume Dulera and Advair. - pt wants to use home inhalers and will bring in. - oxygen PRN to maintain sats > 92% -Pt. continues to improve, denies cough, report improved ease of breathing. Plan to d/c home today. (6) DVT prophylaxis Status: Acute Base Code: [id number] - Comment: 06/04/17 - currently on full anticoagulation for a fib (7) HTN (hypertension) Status: Acute Base Code: I10 - ESSENTIAL (PRIMARY) HYPERTENSION Comment: 09/16: - cont Norvasc (8) Full code status Status: Acute Base Code: Z78.9 - OTHER SPECIFIED HEALTH STATUS Comment: 06/04: - FULL CODE - Hospitalization Course Disposition: Home, Self-Care Hospital Course: Mr. Hinkle is a 57 y/o male who presents with a 3 week history of of shortness lethargy, headache and feeling unwell. He says he thought symptoms would resolve on their own but noticed that after about a week there was no resolution of symptoms but rather a worsening which included, nausea, a few episodes f vomiting, chills, loss of appetite and mild cough with sputum production. The patient has a history of atrial fibrillation on warfarin, coronary artery disease with multiple stents and COPD. He recently stopped smoking about 6 months ago and is up to date on all his preventative vaccines. The patient denies any chest pain, numbness/tingling, or blurring of vision. On arrival to the ED CXR revealed a left lower lobe infiltrate consistent with pneumonia and his white count was markedly elevated. The patient was started on IV fluids and antibiotics and admitted for further management. On bedside examination in the ED this afternoon the patient appears comfortable but tired. He says that he just feels "out of it," and uncomfortable. Auscultation of the lungs does not reveal any expiratory wheezing or appreciable ronchi. 06/04/17: Pt. continues to improve. He now denies cough. White count has decreased. Plan to change IV abx to PO and discharge this morning. Abnormal Labs: Abnormal Lab Results 06/02/17 06/02/17 06/03/17 Range/Units 06:20 06:20 06:30 WBC 29.9 H* 21.7 H* (4.2-12.2) K/uL RBC 3.95 L (4.40-5.70) M/uL Hgb 13.1 L 11.8 L (14.0-18.0) gm/dl Hct 40.9 L 36.2 L (42.0-52.0) % Plt Count 433 H 486 H (130-400) K/uL MPV 10.8 H (7.4-10.4) fl Neutrophils % 81.0 H (47-80) % Lymphocytes 8.0 L 10.0 L (16-45) % Monocytes 11.0 H (0-9) % PT (9.5-12.1) SECONDS Chloride 94 L (98-107) mmol/L Random Glucose 119 H (74-109) mg/dL Albumin 3.2 L (4.0-5.0) g/dL Albumin/Globulin Ratio 0.8 L (1.1-1.8) 06/03/17 06/04/17 Range/Units 06:30 06:36 WBC 17.0 H (4.2-12.2) K/uL RBC 4.23 L (4.40-5.70) M/uL Hgb 12.5 L (14.0-18.0) gm/dl Hct 38.9 L (42.0-52.0) % Plt Count 555 H (130-400) K/uL MPV (7.4-10.4) fl Neutrophils % (47-80) % Lymphocytes 13.0 L (16-45) % Monocytes (0-9) % PT 21.5 H (9.5-12.1) SECONDS Chloride (98-107) mmol/L Random Glucose (74-109) mg/dL Albumin (4.0-5.0) g/dL Albumin/Globulin Ratio (1.1-1.8) Condition at Discharge: (2) Stable Discharge Diagnosis: Community Acquired Pneumonia VTE Discharge VTE Reason For No Overlap Therapy: Not Indicated (Mobility not impaired) Discharge Medications - Discharge Medications Prescriptions: Azithromycin [Zithromax] 500 mg PO DAILY 1 Days #1 tab Cefdinir 300 mg PO Q12H #3 capsule Fluticasone/Vilanterol 200/25 [Breo Ellipta 200-25 Mcg INH] 1 puff INH RESP.DAILY 30 Days #1 inhaler Home Medications: Ambulatory Orders Ibuprofen [Motrin] 800 mg PO Q6HR PRN 04/04/14 [Last Taken 06/01/17] Omeprazole 40 mg PO QHS 04/04/14 [Last Taken 04/03/14] Amlodipine Besylate [Norvasc] 10 mg PO QHS 06/01/17 [Last Taken Unknown] Bumetanide 1 mg PO BID 06/01/17 [Last Taken Unknown] Clopidogrel Bisulfate [Plavix] 75 mg PO QAM 06/01/17 [Last Taken 06/01/17] Ezetimibe [Zetia] 10 mg PO QHS 06/01/17 [Last Taken Unknown] Isosorbide Mononitrate [Imdur] 60 mg PO QAM 06/01/17 [Last Taken 06/01/17] Magnesium Oxide 400 mg PO BID 03/03/18 [Last Taken 06/01/17] Metformin HCl 500 mg PO QHS 06/01/17 [Last Taken Unknown] Potassium Chloride 20 meq PO QAM 06/01/17 [Last Taken 06/01/17] Sotalol HCl [Betapace] 80 mg PO BID 06/01/17 [Last Taken 06/01/17] Warfarin Sodium [Coumadin] 1 mg PO QHS 06/01/17 [Last Taken Unknown] Azithromycin [Zithromax] 500 mg PO DAILY 1 Days #1 tab 06/04/17 [Last Taken Unknown] Cefdinir 300 mg PO Q12H #3 capsule 06/04/17 [Last Taken Unknown] Fluticasone/Vilanterol 200/25 [Breo Ellipta 200-25 Mcg INH] 1 puff INH RESP.DAILY 30 Days #1 inhaler 06/04/17 [Last Taken Unknown] Discharge Plan - Discharge Instructions Activity at Discharge: Increase Activity as Tolerated Diet at Discharge: Diabetic Diet Instructions: Community Acquired Pneumonia (DC) Additional Instructions: 2 Activity: Increase Activity as Tolerated 2 Diet: Diabetic Diet 2 Consults: [] 2 Follow Up: [] 2 Dressing/Wound Care: (Type) (Change) 2 Additional: [] Follow up with your primary care provider in 3-5 days. You should have a repeat chest x-ray in 2 weeks. Return to the ED if you experience fever, worsening cough/congestion, any chest pain. Quality Measures - Quality Measures Quality Measures: Atrial Fibrillation & Atrial Flutter: Chronic Anticoagulation Therapy, Coronary Artery Disease: Antiplatelet Therapy, Documentation of Current Medications in Medical Record, Screening for High Blood Pressure and F/ U Documented - Current Medications Quality Measure: Measure #130: Documentation of Current Medications Documentation of Current Medications: <Current Medications Documented/Reviewed> [G8427] - Blood Pressure Screening Quality Measure: Screening for High Blood Pressure and Follow-Up Documented Does Patient Have Any of the Following: Active Dx of HTN Blood Pressure Classification: Pre-Hypertensive BP Reading Systolic Measurement: 129 Diastolic Measurement: 71 Screening for High Blood Pressure: Patient Exclusion, Hx of HTN [G9744] - Atrial Fibrillation and Atrial Flutter Quality Measure: Atrial Fibrillation & Atrial Flutter: Chronic Anticoagulation Therapy Does Patient Have Any of the Following: No CHADS2 Risk Stratification: Hypertension Risk Stratification Summary: No risk factors or only one moderate risk factor exists. [G8970] Anticoagulation Therapy: <Oral anticoagulant Prescribed> [G8967] - Coronary Artery Disease Quality Measure: Measure #6: Coronary Artery Disease (CAD) Antiplatelet Therapy: <ASA or clopidogrel prescribed> [4086F] (on coumadin) - Elder Abuse Suspicion Index EASI Reference Information: Yasemin ZAMUDIO, Meredith Chandra, Feliciano Delacruz, Addy Mahmood.Development and validation of a tool to assist physicians identification of elder abuse: The Elder Abuse Suspicion Index (EASI ). Journal of Elder Abuse and Neglect, 2008; 20 (3): 276-300.
[2017-06-04] MEDS ORDERED: CEFDINIR 300 MG CAPSULE PO SCH (22:00)
== END 2017-06-04 11:30 | disposition home or self-care (01) | DRG 195 ==
LOC: ER 09:36 → MEDSURG 12:12
PROVIDERS: ADMIT Internal Medicine; ATTEND Internal Medicine
DX: J18.9 Pneumonia, unspecified organism (principal); G43.909 Migraine, unspecified, not intractable, without status migrainosus; R42 Dizziness and giddiness; R11.10 Vomiting, unspecified; H93.13 Tinnitus, bilateral; R05 Cough; I48.91 Unspecified atrial fibrillation; J44.9 Chronic obstructive pulmonary disease, unspecified; I25.10 Atherosclerotic heart disease of native coronary artery without angina pectoris; E78.5 Hyperlipidemia, unspecified; Z79.01 Long term (current) use of anticoagulants; I10 Essential (primary) hypertension; E78.00 Pure hypercholesterolemia, unspecified; Z87.891 Personal history of nicotine dependence; Z78.9 Other specified health status
CPT/HCPCS: 70450; 71046; 80048; 80053; 82550; 82553; 84484; 85027; 85610; 85730; 93005; 93010; 94640; 96365; 96366; 96368; 99223; 99233; 99239; 99285; J0456; J7030; J7050; J7613

== ENCOUNTER 2018-04-16 13:57 | Inpatient (IN) | payer BC ==
[2018-04-16] MEDS ORDERED: IPRATROPIUM/ALBUTEROL (0.5MG/3MG) NEB INH ONE ×2 (14:31→14:34)
[2018-04-16] MEDS ORDERED: METHYLPREDNISOLONE PF 125MG/VIAL IVP ONE (14:42)
[2018-04-16] MEDS ORDERED: ASPIRIN 81 MG CHEWABLE TABLET PO ONE (14:45)
--- NOTE | 2018-04-16 14:45 | Emergency Department Record ---
History of Present Illness - General Chief Complaint: Shortness of breath Stated Complaint: MYA Time Seen by Provider: 04/16/18 14:34 Source: Patient, RN notes reviewed Mode of Arrival: Wheelchair - History of Present Illness Initial Comments: sob and cough with yellow sputum. [facility] CHF Dr melvin Atrial fib and heart cath mar 2018 at [facility] PCP Dr Robb Leach [facility] physician. substernal chest pain worse with coughing. Pulse ox 83% initially on room air Onset/Timin -: Week(s) Severity scale (1-10): 5 Quality: Aching Consistency: Constant Improves With: Nothing Worsens With: Exertion, Lying flat Known History Of: Congestive heart failure, COPD Associated Symptoms: Cough, Pain with inspiration Treatments Prior to Arrival: Bronchodilator - Related Data Home Oxygen Therapy: No Home Medications Medication Instructions Recorded Confirmed Last Taken Albuterol Sulfate [Proair Hfa] 1 puff IH ASDIR 04/16/18 04/16/18 Unknown Hydrocodone/Acetaminophen 5 mg PO Q6H 04/16/18 04/16/18 Unknown [Hydrocodone/Acetaminophen 5mg/325mg] Mometasone/Formoterol [Dulera 200 8.8 gm IH ASDIR PRN 04/16/18 04/16/18 Unknown Mcg/5 Mcg Inhaler] Tramadol HCl [Ultram] 50 mg PO Q8H PRN 04/16/18 04/16/18 Unknown Zolpidem Tartrate [Ambien] 5 mg PO QHS PRN 04/16/18 04/16/18 Unknown Previous Rx's Medication Instructions Recorded Azithromycin [Zithromax] 500 mg PO DAILY 1 Days #1 tab 06/04/17 Allergies Allergy/AdvReac Type Severity Reaction Status Date / Time NO KNOWN DRUG ALLERGY Allergy no Uncoded 06/01/17 09:44 allergies Travel Screening - Travel/Exposure Within Last 30 Days Have you traveled within the last 30 days?: No Review of Systems Reviewed: No additional complaints except as noted below Constitutional: Reports: As per HPI. Denies: Chills, Fever, Malaise, Night sweats, Weakness, Weight change Eyes: Reports: As per HPI. Denies: Eye discharge, Eye pain, Photophobia, Vision change ENT: Reports: As per HPI, Congestion. Denies: Dental pain, Ear pain, Epistaxis , Hearing loss, Throat pain Respiratory: Reports: As per HPI, Cough, Dyspnea. Denies: Hemoptysis, Stridor, Wheezes Cardiovascular: Reports: As per HPI, Chest pain. Denies: Arrhythmia, Dyspnea on exertion, Edema, Murmurs, Orthopnea, Palpitations, Paroxysmal nocturnal dyspnea, Rheumatic Fever, Syncope Endocrine: Reports: As per HPI. Denies: Fatigue, Heat or cold intolerance, Polydipsia, Polyuria Gastrointestinal: Reports: As per HPI. Denies: Abdominal pain, Constipation, Diarrhea, Hematemesis, Hematochezia, Melena, Nausea, Vomiting Genitourinary: Reports: As per HPI. Denies: Dysuria, Frequency, Hematuria, Incontinence, Retention, Testicular pain, Testicular mass, Urgency Musculoskeletal: Reports: As per HPI. Denies: Arthralgia, Back pain, Gout, Joint swelling, Myalgia, Neck pain Skin: Reports: As per HPI. Denies: Bruising, Change in color, Change in hair/ nails, Lesions, Pruritus, Rash Neurological: Reports: As per HPI. Denies: Abnormal gait, Confusion, Headache, Numbness, Paresthesias, Seizure, Tingling, Tremors, Vertigo, Weakness Psychiatric: Reports: As per HPI. Denies: Anxiety, Auditory hallucinations, Depression, Homicidal thoughts, Suicidal thoughts, Visual hallucinations Hematological/Lymphatic: Reports: As per HPI. Denies: Anemia, Blood Clots, Easy bleeding, Easy bruising, Swollen glands Past Medical History - SOCIAL HISTORY Smoking Status: Former smoker - RESPIRATORY Hx Respiratory Disorders: Yes Hx Bronchitis: Yes Hx COPD: Yes Hx Pneumonia: Yes - CARDIOVASCULAR Hx Cardio Disorders: Yes Hx Cardiac Cath: Yes Hx Hypertension: Yes Hx Irregular Heartbeat: Yes (afib) Comment:: High cholesterol - NEURO Hx Neuro Disorders: No - GI Hx GI Disorders: Yes Hx Reflux: Yes - Hx Genitourinary Disorders: No - ENDOCRINE Hx Endocrine Disorders: No - MUSCULOSKELETAL Hx Musculoskeletal Disorders: Yes Hx Back Injury: Yes - PSYCH Hx Psych Problems: No - HEMATOLOGY/ONCOLOGY Hx Hematology/Oncology Disorders: No Family Medical History Any Significant Family History?: No Physical Exam - General General Appearance: Alert, Oriented x3, Cooperative, Moderate distress - Head Head exam: Normal inspection - Eye Eye exam: Normal appearance, PERRL Pupils: Normal accommodation - ENT ENT exam: Normal exam, Mucous membranes moist, Normal external ear exam, Normal orophraynx, TM's normal bilaterally Ear exam: Normal external inspection. negative: External canal tenderness Nasal Exam: Normal inspection. negative: Discharge, Sinus tenderness Mouth exam: Normal external inspection, Tongue normal Teeth exam: Normal inspection. negative: Dental caries Throat exam: Normal inspection. negative: Tonsillar erythema, Tonsillar exudate - Neck Neck exam: Normal inspection, Full ROM. negative: Tenderness - Respiratory Respiratory exam: Decreased breath sounds, Wheezes. negative: Respiratory distress - Cardiovascular Cardiovascular Exam: Regular rate, Normal rhythm, Normal heart sounds - GI/Abdominal GI/Abdominal exam: Soft, Normal bowel sounds. negative: Tenderness - Rectal Rectal exam: Deferred - exam: Deferred - Extremities Extremities exam: Normal inspection, Full ROM, Normal capillary refill. negative: Tenderness - Back Back exam: Reports: Normal inspection, Full ROM. Denies: Muscle spasm, Rash noted, Tenderness - Neurological Neurological exam: Alert, Normal gait, Oriented X3, Reflexes normal - Psychiatric Psychiatric exam: Normal affect, Normal mood - Skin Skin exam: Dry, Intact, Normal color, Warm Course Vital Signs 04/16/18 14:03 Temperature 97.8 F Pulse Rate 91 H Respiratory 26 H Rate Blood Pressure 164/83 Pulse Ox 83 L - Reevaluation(s) Reevaluation #1: discussed case with Dr Jenkins's partner and he said the cath normal less than one month ago at [facility] and he recommended checking BNP and second set of cardiac enzymes and if neg not an NM and pulmonary problems. Discussed case with Dr Garvin and will admit for IV antiobiotics and oxygen and solumedrol. 04/16/18 18:29 Medical Decision Making - Data Complexity MDM Data: Labs Ordered and/or Reviewed, X-Ray Ordered and/or Reviewed (chest xray negative) - Lab Data Result diagrams: 04/16/18 14:45 04/16/18 14:45 Disposition Clinical Impression: Hypoxia, Bronchitis Chest pain Qualifiers: Chest pain type: unspecified Qualified Code(s): R07.9 - Chest pain, unspecified COPD (chronic obstructive pulmonary disease) Qualifiers: COPD type: COPD with acute exacerbation Qualified Code(s): J44.1 - Chronic obstructive pulmonary disease with (acute) exacerbation CAD (coronary artery disease) Qualifiers: Coronary Disease-Associated Artery/Lesion type: [place] artery [place] vs. transplanted heart: [place] heart Associated angina: with unstable angina Qualified Code(s): I25.110 - Atherosclerotic heart disease of [place] coronary artery with unstable angina pectoris Decision to Admit: Admit from ER Condition: (2) Stable Forms: Patient Portal Access Time of Disposition: 18:33 Quality - Quality Measures Quality Measures: N/A - Blood Pressure Screening Does Patient Have Any of the Following: No Blood Pressure Classification: Pre-Hypertensive BP Reading Systolic Measurement: 164 Diastolic Measurement: 83 Screening for High Blood Pressure: < Pre-Hypertensive BP, F/U Documented > [ G8950] Pre-Hypertensive Follow-up Interventions: Referral to alternative/primary care provider.
[2018-04-16 15:00] LABS: HEMATOCRIT 38.4 % (42.0-52.0); MEAN CELL VOLUME 91.2 fl (81-97); MEAN CORPUSCULAR HEMOGLOBIN 28.5 pg (27-33); MEAN CORPUSCULAR HGB CONC 31.3 g/dl (32-36); MEAN PLATELET VOLUME 10.7 fl (7.4-10.4); PLATELET COUNT 422 K/uL (130-400); RED BLOOD COUNT 4.21 M/uL (4.40-5.70); RED CELL DISTRIBUTION WIDTH 13.3 % (11.5-14.5); WHITE BLOOD COUNT W/O DIFF 17.6 K/uL (4.2-12.2)
[2018-04-16 15:10] LABS: PLATELET ESTIMATE NORMAL (NORMAL)
[2018-04-16 15:14] LABS: INR 1.3; PARTIAL THROMBOPLASTIN TIME 42.5 SECONDS (24.5-39.1); PROTHROMBIN TIME (PATIENT) 13.4 SECONDS (9.5-12.1)
[2018-04-16 15:28] LABS: BLOOD UREA NITROGEN 18 mg/dL (6-20); CREATININE 0.8 mg/dL (0.7-1.2); EST GLOMERULAR FILTRATION RATE > 60 mL/min
[2018-04-16 15:31] LABS: GLUCOSE,RANDOM 127 mg/dL (74-109)
[2018-04-16] MEDS ORDERED: ALBUTEROL (0.5% CONCENTRATED) 2.5 MG/0.5 ML VIAL.NEB INH ONE (15:40)
[2018-04-16 17:53] LABS: INFLUENZA A NEGATIVE (NEGATIVE); INFLUENZA B NEGATIVE (NEGATIVE)
[2018-04-16] MEDS ORDERED: 0.9 % SODIUM CHLORIDE 1000ML 1,000 ML IV PRN (19:34)
[2018-04-16 20:18] LABS: URINE APPEARANCE CLEAR; URINE BILIRUBIN NEGATIVE (NEGATIVE); URINE BLOOD NEGATIVE (NEGATIVE); URINE COLOR YELLOW; URINE GLUCOSE (UA) NEGATIVE (NEGATIVE); URINE KETONE NEGATIVE (NEGATIVE); URINE LEUKOCYTE ESTERASE NEGATIVE (NEGATIVE); URINE NITRITE NEGATIVE (NEGATIVE); URINE PROTEIN NEGATIVE (NEGATIVE); URINE UROBILINOGEN 0.2 E.U./dL (0.20 - 1.00)
[2018-04-16] MEDS: AMPICILLIN SODIUM/SULBACTAM NA 3 G in 0.9 % SODIUM CHLORIDE 100ML 100 ML IVPB SCH (20:25)
[2018-04-16] MEDS: WARFARIN 2.5 MG TAB PO SCH (20:38)
[2018-04-16] MEDS: IPRATROPIUM/ALBUTEROL (0.5MG/3MG) NEB INH SCH (21:01)
[2018-04-16] MEDS: DOXAZOSIN MESYLATE 2 MG TABLET PO SCH (21:49)
[2018-04-16] MEDS: POTASSIUM CHLORIDE 20 MEQ TABLET PO SCH (21:56)
[2018-04-16] MEDS: MAGNESIUM OXIDE 400 MG TABLET PO SCH (21:56)
[2018-04-16] MEDS: METFORMIN 500 MG TABLET PO SCH (21:56)
[2018-04-16] MEDS: EZETIMIBE 10 MG TABLET PO SCH (21:56)
[2018-04-16] MEDS: SOTALOL HCL 80 MG TABLET PO SCH (21:57)
[2018-04-16] MEDS: METHYLPREDNISOLONE PF 125MG/VIAL IVP SCH (21:57)
[2018-04-16] MEDS ORDERED: BUMETANIDE 1 MG TABLET PO SCH (22:00)
[2018-04-17] MEDS: ALBUTEROL SULFATE (0.083%) 2.5 MG/3 ML NEB INH PRN ×3 (00:04→21:05)
[2018-04-17] MEDS: AMPICILLIN SODIUM/SULBACTAM NA 3 G in 0.9 % SODIUM CHLORIDE 100ML 100 ML IVPB SCH ×5 (00:52→23:40)
[2018-04-17] MEDS: METHYLPREDNISOLONE PF 125MG/VIAL IVP SCH ×3 (05:51→21:56)
[2018-04-17] MEDS: IPRATROPIUM/ALBUTEROL (0.5MG/3MG) NEB INH SCH ×2 (06:01→10:18)
[2018-04-17 06:36] LABS: INR 1.3; PROTHROMBIN TIME (PATIENT) 13.1 SECONDS (9.5-12.1)
[2018-04-17] MEDS: PANTOPRAZOLE SODIUM 40 MG TABLET PO SCH (06:44)
[2018-04-17 08:11] LABS: HEMATOCRIT 40.7 % (42.0-52.0); HEMOGLOBIN 12.4 gm/dl (14.0-18.0); MEAN CELL VOLUME 92.7 fl (81-97); MEAN CORPUSCULAR HEMOGLOBIN 28.2 pg (27-33); MEAN CORPUSCULAR HGB CONC 30.5 g/dl (32-36); PLATELET COUNT 439 K/uL (130-400); RED BLOOD COUNT 4.39 M/uL (4.40-5.70); RED CELL DISTRIBUTION WIDTH 13.5 % (11.5-14.5); WHITE BLOOD COUNT W/O DIFF 15.3 K/uL (4.2-12.2)
[2018-04-17 08:24] LABS: PLATELET ESTIMATE NORMAL (NORMAL)
[2018-04-17] MEDS: ISOSORBIDE MONONITRATE 60 MG TAB.ER.24H PO SCH (09:53)
[2018-04-17] MEDS: CLOPIDOGREL 75MG TABLET PO SCH (09:53)
[2018-04-17] MEDS: MAGNESIUM OXIDE 400 MG TABLET PO SCH ×2 (09:53→21:52)
[2018-04-17] MEDS: SOTALOL HCL 80 MG TABLET PO SCH ×2 (09:55→21:54)
[2018-04-17] MEDS: BUMETANIDE 1 MG TABLET PO SCH ×2 (09:55→16:08)
[2018-04-17 10:17] LABS: ALB/GLOB RATIO 0.8 (1.1-1.8); ALBUMIN 3.5 g/dL (4.0-5.0); ALKALINE PHOSPHATASE 83 U/L (55-149); ALT/SGPT 14 U/L (<41); AST/SGOT 11 U/L (10.0-50.0); BILIRUBIN,TOTAL < 0.20 mg/dL (0.2-1.0); BLOOD UREA NITROGEN 17 mg/dL (6-20); CREATININE 0.8 mg/dL (0.7-1.2); EST GLOMERULAR FILTRATION RATE > 60 mL/min; GLUCOSE,RANDOM 163 mg/dL (74-109); TOTAL PROTEIN 7.7 g/dL (6.6-8.7)
--- NOTE | 2018-04-17 11:10 | History & Physical ---
History of Present Illness - Date of Service Date of Service for History & Physical: 04/17/18 - History of Present Illness Admitting Diagnosis: copd exacerbation with bronchitis History of Present Illness: PMHx: CAD with 3 stents, CHF, Pre-diabetes?, COPD, a-fib Pt states that he was recently admitted by Dr. 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 A cath was done after he was diuresed and he was noted to have CHF. He states that he started to get a cold on saturday with sore throat and called his doctor for a ZPACK. He was on ZPACK for 3 days but he progressed to get SOB to the point where he was gasping for air and had to go to the ER because he "felt like I was gonna ". He states that he usually gets PNA every year. At home he doesn't use his inhalers daily but only PRN - even dulera. He states that it was prescribed that way. He also complained that he was having significant sputum and post-tussive vomiting. ED course: Vitals: T afebrile, P 91, RR 26, BP 164/83, 83% on RA pertinent labs: INR 1.3, WBC elevated, BNP and trop x 2 wnl. Neg for influenza A /B CXR: Neg for acute process. EKG: NSR Given: IVF, Unasyn, Steroids, duonebs Today pt states that " I can actually breathe". Still complains of mucus and cough. Also complains of headache that usually resolves with ibuprofen. SOB is better but still complains of chest heaviness. Travel Screening - Travel/Exposure Within Last 30 Days Have you traveled within the last 30 days?: No - Travel/Exposure Within Last Year Have you traveled outside the [place] in the last year?: No - Additonal Travel Details Have you been exposed to anyone with a communicable illness?: Yes Exposure Details:: grandchildren cold - Travel Symptoms Symptom Screening: Headache, Joint & Muscle Aches, Weakness, Fatigue, Vomiting, Stomach Pain, Lack of Appetite, Chills Review of Systems Constitutional: Reports: As per HPI. Denies: Chills, Fever, Malaise, Night sweats, Weakness, Weight change Eyes: Reports: As per HPI. Denies: Eye discharge, Eye pain, Photophobia, Vision change ENT: Reports: As per HPI, Congestion. Denies: Dental pain, Ear pain, Epistaxis , Hearing loss, Throat pain Respiratory: Reports: As per HPI, Cough, Dyspnea, Wheezes. Denies: Hemoptysis, Stridor Cardiovascular: Reports: As per HPI, Chest pain (heaviness), Dyspnea on exertion. Denies: Arrhythmia, Edema, Murmurs, Orthopnea, Palpitations, Paroxysmal nocturnal dyspnea, Rheumatic Fever, Syncope Endocrine: Reports: As per HPI. Denies: Fatigue, Heat or cold intolerance, Polydipsia, Polyuria Gastrointestinal: Reports: As per HPI. Denies: Abdominal pain, Constipation, Diarrhea, Hematemesis, Hematochezia, Melena, Nausea, Vomiting Genitourinary: Reports: As per HPI. Denies: Dysuria, Frequency, Hematuria, Incontinence, Retention, Testicular pain, Testicular mass, Urgency Musculoskeletal: Reports: As per HPI. Denies: Arthralgia, Back pain, Gout, Joint swelling, Myalgia, Neck pain Skin: Reports: As per HPI. Denies: Bruising, Change in color, Change in hair/ nails, Lesions, Pruritus, Rash Neurological: Reports: As per HPI, Headache. Denies: Abnormal gait, Confusion, Numbness, Paresthesias, Seizure, Tingling, Tremors, Vertigo, Weakness Psychiatric: Reports: As per HPI. Denies: Anxiety, Auditory hallucinations, Depression, Homicidal thoughts, Suicidal thoughts, Visual hallucinations Hematological/Lymphatic: Reports: As per HPI. Denies: Anemia, Blood Clots, Easy bleeding, Easy bruising, Swollen glands Past Medical History - SOCIAL HISTORY Smoking Status: Former smoker Alcohol Use: Rare Drug Use: None - RESPIRATORY Hx Respiratory Disorders: Yes Hx Bronchitis: Yes Hx COPD: Yes Hx Pneumonia: Yes - CARDIOVASCULAR Hx Cardio Disorders: Yes Hx Cardiac Cath: Yes Hx Hypertension: Yes Hx Irregular Heartbeat: Yes (afib) Comment:: High cholesterol - NEURO Hx Neuro Disorders: No - GI Hx GI Disorders: Yes Hx Reflux: Yes - Hx Genitourinary Disorders: No - ENDOCRINE Hx Endocrine Disorders: No - MUSCULOSKELETAL Hx Musculoskeletal Disorders: Yes Hx Back Injury: Yes - PSYCH Hx Psych Problems: No - HEMATOLOGY/ONCOLOGY Hx Hematology/Oncology Disorders: No Family Medical History Any Significant Family History?: No H&P Meds/Allergies - Allergies Allergies: Allergies Allergy/AdvReac Type Severity Reaction Status Date / Time NO KNOWN DRUG ALLERGY Allergy no Uncoded 06/01/17 09:44 allergies - Home Medications Home Medications Medication Instructions Recorded Confirmed Last Taken Albuterol Sulfate [Proair Hfa] 1 puff IH ASDIR 04/16/18 04/16/18 Unknown Hydrocodone/Acetaminophen 5 mg PO Q6H 04/16/18 04/16/18 Unknown [Hydrocodone/Acetaminophen 5mg/325mg] Mometasone/Formoterol [Dulera 200 8.8 gm IH ASDIR PRN 04/16/18 04/16/18 Unknown Mcg/5 Mcg Inhaler] Tramadol HCl [Ultram] 50 mg PO Q8H PRN 04/16/18 04/16/18 Unknown Zolpidem Tartrate [Ambien] 5 mg PO QHS PRN 04/16/18 04/16/18 Unknown Previous Rx's Medication Instructions Recorded Azithromycin [Zithromax] 500 mg PO DAILY 1 Days #1 tab 06/04/17 - Active Medications Active Medications: Current Medications Albuterol Sulfate (Albuterol Sulfate) 2.5 mg INH RESP.Q2H PRN PRN Reason: DIFFICULTY IN BREATHING Last Admin: 04/17/18 00:04 Dose: 2.5 mg Albuterol/Ipratropium (Duoneb) 3 ml INH RESP.Q4H.[facility] Last Admin: 04/17/18 10:18 Dose: 3 ml Bumetanide (Bumex) 1 mg PO BIDDIUR [facility] Last Admin: 04/17/18 09:55 Dose: 1 mg Clopidogrel Bisulfate (Plavix) 75 mg PO QAM [facility] Last Admin: 04/17/18 09:53 Dose: 75 mg Doxazosin Mesylate (Cardura) 1 mg PO QHS [facility] Last Admin: 04/16/18 21:49 Dose: 1 mg Ezetimibe (Zetia) 10 mg PO QHS [facility] Last Admin: 04/16/18 21:56 Dose: 10 mg Sodium Chloride () 1,000 mls @ 50 mls/hr IV .Q20H PRN PRN Reason: LARGE VOLUME IV Ampicillin Sodium/Sulbactam (Sodium 3 g/ Sodium Chloride) 100 mls @ 200 mls/hr IVPB Q6HR [facility] Last Infusion: 04/17/18 06:41 Dose: Infused Isosorbide Mononitrate (Imdur) 60 mg PO QAM [facility] Last Admin: 04/17/18 09:53 Dose: 60 mg Magnesium Oxide (Mag Ox) 400 mg PO BID [facility] Last Admin: 04/17/18 09:53 Dose: 400 mg Metformin HCl (Glucophage Ir) 500 mg PO QHS [facility] Last Admin: 04/16/18 21:56 Dose: 500 mg Methylprednisolone Sodium Succinate (Solu-Medrol) 60 mg IVP Q8HR [facility] Last Admin: 04/17/18 05:51 Dose: 60 mg Pantoprazole Sodium (Protonix) 40 mg PO DAILYAC [facility] Last Admin: 04/17/18 06:44 Dose: 40 mg Potassium Chloride (Klor-Con) 20 meq PO QHS [facility] Last Admin: 04/16/18 21:56 Dose: 20 meq Sotalol HCl (Betapace) 80 mg PO BID [facility] Last Admin: 04/17/18 09:55 Dose: 80 mg Warfarin Sodium (Coumadin) 2.5 mg PO [id number] [facility] Last Admin: 04/16/18 20:38 Dose: 2.5 mg Physical Exam - Vital Signs Vital Signs: Vital Signs - Last 24 Hrs Temp Pulse Pulse Pulse Resp BP BP 04/17/18 10:15 94 H 20 04/17/18 10:00 98.6 F 84 28 H 139/62 04/17/18 09:00 16 04/17/18 06:04 78 16 04/17/18 06:01 74 20 04/17/18 06:00 97.6 F 75 70 18 142/77 04/17/18 01:57 98.3 F 73 18 04/17/18 00:15 78 16 04/16/18 21:00 78 80 16 04/16/18 20:53 80 16 04/16/18 20:52 78 20 04/16/18 19:45 97.6 F 80 20 04/16/18 19:00 78 20 111/48 04/16/18 16:24 79 24 04/16/18 14:05 86 27 H 04/16/18 14:03 97.8 F 91 H 26 H 164/83 BP Pulse Ox 04/17/18 10:15 93 L 04/17/18 10:00 91 L 04/17/18 09:00 04/17/18 06:04 04/17/18 06:01 88 L 04/17/18 06:00 95 04/17/18 01:57 147/81 96 04/17/18 00:15 04/16/18 21:00 04/16/18 20:53 04/16/18 20:52 92 L 04/16/18 19:45 164/89 91 L 04/16/18 19:00 97 04/16/18 16:24 110/70 95 04/16/18 14:05 04/16/18 14:03 83 L - General General Appearance: Alert, Oriented x3, Cooperative, Mild distress Limitations: No limitations - Head Head exam: Normal inspection - Eye Eye exam: Normal appearance, PERRL, EOMI. negative: Conjunctival injection Pupils: Normal accommodation - ENT ENT exam: Normal exam, Mucous membranes moist, Normal external ear exam, Normal orophraynx Ear exam: Normal external inspection. negative: External canal tenderness Nasal Exam: Normal inspection. negative: Discharge, Sinus tenderness Mouth exam: Normal external inspection, Tongue normal Throat exam: Normal inspection. negative: Tonsillar erythema, Tonsillar exudate - Neck Neck exam: Normal inspection, Full ROM. negative: Tenderness - Respiratory Respiratory exam: Decreased breath sounds (bases b/l). negative: Accessory muscle use, Respiratory distress, Wheezes - Cardiovascular Cardiovascular Exam: Regular rate, Normal rhythm, Normal heart sounds - GI/Abdominal GI/Abdominal exam: Soft, Normal bowel sounds. negative: Tenderness - Rectal Rectal exam: Deferred - exam: Deferred - Extremities Extremities exam: Normal inspection, Full ROM. negative: Pedal edema, Tenderness - Back Back exam: Reports: Normal inspection. Denies: Muscle spasm, Rash noted, Tenderness - Neurological Neurological exam: Alert, Oriented X3 - Psychiatric Psychiatric exam: Normal affect, Normal mood - Skin Skin exam: Dry, Intact, Normal color, Warm Results - Labs Result Diagrams: 04/17/18 06:00 04/17/18 08:34 Labs Last 24 Hours: Laboratory Results - last 24 hr 04/16/18 04/16/18 04/16/18 14:20 14:45 14:45 WBC 17.6 H RBC 4.21 L Hgb 12.0 L Hct 38.4 L MCV 91.2 MCH 28.5 MCHC 31.3 L RDW 13.3 Plt Count 422 H MPV 10.7 H Neutrophils % 76.0 Eosinophils % Not Reportable Basophils % Not Reportable Lymphocytes 15.0 L Monocytes 5.0 Platelet Estimate Normal RBC Morphology Normal Eosinophil Count 4.0 PT 13.4 H INR 1.3 APTT 42.5 H Sodium Potassium Chloride Carbon Dioxide Anion Gap BUN Creatinine Estimated GFR Random Glucose Calcium Total Bilirubin AST ALT Alkaline Phosphatase Troponin T NT-Pro-B Natriuret Pep 61.42 Total Protein Albumin Globulin Albumin/Globulin Ratio Urine Color Urine Appearance Urine pH Ur Specific [place] Urine Protein Urine Glucose (UA) Urine Ketones Urine Blood Urine Nitrite Urine Bilirubin Urine Urobilinogen Ur Leukocyte Esterase Influenza Type A Ag Influenza Type B Ag 04/16/18 04/16/18 04/16/18 14:45 17:36 18:00 WBC RBC Hgb Hct MCV MCH MCHC RDW Plt Count MPV Neutrophils % Eosinophils % Basophils % Lymphocytes Monocytes Platelet Estimate RBC Morphology Eosinophil Count PT INR APTT Sodium 141 Potassium 4.3 Chloride 93 L Carbon Dioxide 32.0 H Anion Gap 16.0 BUN 18 Creatinine 0.8 Estimated GFR > 60 Random Glucose 127 H Calcium 9.9 Total Bilirubin AST ALT Alkaline Phosphatase Troponin T < 0.010 < 0.010 NT-Pro-B Natriuret Pep Total Protein Albumin Globulin Albumin/Globulin Ratio Urine Color Urine Appearance Urine pH Ur Specific [place] Urine Protein Urine Glucose (UA) Urine Ketones Urine Blood Urine Nitrite Urine Bilirubin Urine Urobilinogen Ur Leukocyte Esterase Influenza Type A Ag Negative Influenza Type B Ag Negative 04/16/18 04/17/18 04/17/18 20:15 06:00 06:22 WBC 15.3 H RBC 4.39 L Hgb 12.4 L Hct 40.7 L MCV 92.7 MCH 28.2 MCHC 30.5 L RDW 13.5 Plt Count 439 H MPV 11.0 H Neutrophils % 89.0 H Eosinophils % Not Reportable Basophils % Not Reportable Lymphocytes 9.0 L Monocytes 1.0 Platelet Estimate Normal RBC Morphology Normal Eosinophil Count 1.0 PT 13.1 H INR 1.3 APTT Sodium Potassium Chloride Carbon Dioxide Anion Gap BUN Creatinine Estimated GFR Random Glucose Calcium Total Bilirubin AST ALT Alkaline Phosphatase Troponin T NT-Pro-B Natriuret Pep Total Protein Albumin Globulin Albumin/Globulin Ratio Urine Color Yellow Urine Appearance Clear Urine pH 6.0 Ur Specific [place] 1.020 Urine Protein Negative Urine Glucose (UA) Negative Urine Ketones Negative Urine Blood Negative Urine Nitrite Negative Urine Bilirubin Negative Urine Urobilinogen 0.2 Ur Leukocyte Esterase Negative Influenza Type A Ag Influenza Type B Ag 04/17/18 08:34 WBC RBC Hgb Hct MCV MCH MCHC RDW Plt Count MPV Neutrophils % Eosinophils % Basophils % Lymphocytes Monocytes Platelet Estimate RBC Morphology Eosinophil Count PT INR APTT Sodium 140 Potassium 4.7 H Chloride 97 L Carbon Dioxide 31.0 H Anion Gap 12.0 BUN 17 Creatinine 0.8 Estimated GFR > 60 Random Glucose 163 H Calcium 9.4 Total Bilirubin < 0.20 L AST 11 ALT 14 Alkaline Phosphatase 83 Troponin T NT-Pro-B Natriuret Pep Total Protein 7.7 Albumin 3.5 L Globulin 4.2 Albumin/Globulin Ratio 0.8 L Urine Color Urine Appearance Urine pH Ur Specific [place] Urine Protein Urine Glucose (UA) Urine Ketones Urine Blood Urine Nitrite Urine Bilirubin Urine Urobilinogen Ur Leukocyte Esterase Influenza Type A Ag Influenza Type B Ag VTE H&P Assessment - Risk for VTE Risk for VTE: Yes Risk Level: High Risk Assessment Date: 04/17/18 Risk Assessment Time: 11:41 VTE Orders Placed or Will Be Placed: No VTE Reason for No Prophylaxis: Contraindicated (on warfarin) Plan - Inpatient Certification Inpatient Certification: Admit to inpatient care: Based on my medical assessment, after consideration of patient's risk factors (age, co-morbidities and patient presenting symptoms and acuity), I expect that this patient will remain in the hospital greater than or equal to two midnights and that the services needed warrant inpatient care because: Patient Risk Factors: [co-morbidities, presenting sx, acuity] Estimated length of stay: [3] The patient may reasonably be expected to be discharged or transferred to a hospital within 96 hours after admission to [facility]. Services needed: [Respiratory, IV abx, IVF, O2] Post hospital care (if known): [] I certify that my determination is in accordance with my understanding of Medicare requirements for reasonable and necessary inpatient services. 04/17/18 11:31 - Detailed Diagnosis and Plan (1) COPD with exacerbation Current Visit: Yes Status: Acute Base Code: J44.1 - CHRONIC OBSTRUCTIVE PULMONARY DISEASE W (ACUTE) EXACERBATION Priority: High Comment: - O2 as needed, keep O2 sats b/t 88-92 - Resp Treatements per resp. - Anora ellipta as prescribed. - Steroids daily. - Unasyn working well, will switch to augmentin after IV abx in 48 hours. - Rpt CXR in AM (2) CHF (congestive heart failure) Current Visit: Yes Status: Chronic Qualifiers: Heart failure chronicity: unspecified Base Code: I50.9 - HEART FAILURE, UNSPECIFIED Priority: Medium Comment: - Was seen by Dr. Jenkins in the last few weeks inpt and then outpt. - Will keep meds as prescribed for now. - Alice was notified of admission yesterday. - No swelling noted. - BNP wnl. (3) CAD (coronary artery disease) Current Visit: Yes Status: Chronic Qualifiers: Coronary Disease-Associated Artery/Lesion type: [place] artery [place] vs. transplanted heart: [place] heart Associated angina: with unstable angina Qualified Code(s): I25.110 - Atherosclerotic heart disease of [place] coronary artery with unstable angina pectoris Base Code: I25.10 - ATHSCL HEART DISEASE OF [place] CORONARY ARTERY W/O ANG PCTRS Comment: - coronary artery disease x 3 stents, last stent placed in 2015. - ECG shows NSR, troponin x 2 neg, - resume home meds (4) A-fib Current Visit: No Status: Chronic Base Code: I48.91 - UNSPECIFIED ATRIAL FIBRILLATION Comment: - NSR, rate controlled on Sotalol 80mg QD, cont site monitor. 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 - INR subtherapeutic, Pharmacy to dose. (5) DVT prophylaxis Current Visit: No Status: Acute Base Code: [id number] - Comment: - currently on full anticoagulation for a fib (6) Full code status Current Visit: No Status: Acute Base Code: Z78.9 - OTHER SPECIFIED HEALTH STATUS Comment: - FULL CODE - Disposition pending improvement in sx
[2018-04-17] MEDS ORDERED: IBUPROFEN 400 MG TABLET PO ONE (11:11)
[2018-04-17] MEDS: ANORO (UMECLIDINIUM & VILANTEROL) 62.5MCG/25MCG INH IH SCH (13:12)
[2018-04-17] MEDS: GUAIFENESIN/D-METH. 10 ML UDC PO SCH ×4 (13:15→23:45)
[2018-04-17] MEDS: WARFARIN 2.5 MG TAB PO SCH (16:08)
[2018-04-17] MEDS: EZETIMIBE 10 MG TABLET PO SCH (21:52)
[2018-04-17] MEDS: METFORMIN 500 MG TABLET PO SCH (21:53)
[2018-04-17] MEDS: DOXAZOSIN MESYLATE 2 MG TABLET PO SCH (21:54)
[2018-04-17] MEDS: POTASSIUM CHLORIDE 20 MEQ TABLET PO SCH (21:54)
[2018-04-17] MEDS ORDERED: ACETAMINOPHEN 500 MG TABLET PO PRN (23:47)
[2018-04-18] MEDS: AMPICILLIN SODIUM/SULBACTAM NA 3 G in 0.9 % SODIUM CHLORIDE 100ML 100 ML IVPB SCH ×2 (05:57→14:06)
[2018-04-18] MEDS: METHYLPREDNISOLONE PF 125MG/VIAL IVP SCH ×3 (05:57→22:17)
[2018-04-18] MEDS: PANTOPRAZOLE SODIUM 40 MG TABLET PO SCH (06:05)
[2018-04-18 06:34] LABS: BASO % 0.2 % (0-6); HEMATOCRIT 34.1 % (42.0-52.0); HEMOGLOBIN 10.5 gm/dl (14.0-18.0); LYMPH % 6.8 % (16-45); MEAN CELL VOLUME 91.7 fl (81-97); MEAN CORPUSCULAR HEMOGLOBIN 28.2 pg (27-33); MEAN CORPUSCULAR HGB CONC 30.8 g/dl (32-36); MEAN PLATELET VOLUME 10.2 fl (7.4-10.4); MONO % 3.5 % (0-9); PLATELET COUNT 410 K/uL (130-400); RED BLOOD COUNT 3.72 M/uL (4.40-5.70); RED CELL DISTRIBUTION WIDTH 13.2 % (11.5-14.5)
[2018-04-18 06:41] LABS: WHITE BLOOD COUNT W/O DIFF 20.6 K/uL (4.2-12.2)
[2018-04-18 06:45] LABS: INR 1.5
[2018-04-18 06:55] LABS: ALBUMIN 3.6 g/dL (4.0-5.0); ALKALINE PHOSPHATASE 76 U/L (55-149); ALT/SGPT 30 U/L (<41); AST/SGOT 19 U/L (10.0-50.0); BILIRUBIN,TOTAL < 0.20 mg/dL (0.2-1.0); BLOOD UREA NITROGEN 28 mg/dL (6-20); EST GLOMERULAR FILTRATION RATE > 60 mL/min; GLUCOSE,RANDOM 176 mg/dL (74-109); TOTAL PROTEIN 7.3 g/dL (6.6-8.7)
--- NOTE | 2018-04-18 07:19 | RADIOLOGY REPORT ---
EXAM: CHEST, TWO VIEWS HISTORY: DIFFICULTY IN BREATHING. TECHNIQUE: Frontal and lateral views of the chest were performed. Comparison: 06/01/17. FINDINGS: The heart size is normal. No pulmonary vascular congestion. No infiltrate or pleural effusion. The osseous structures are normal. IMPRESSION: NEGATIVE CHEST EXAMINATION. JOB NUMBER: [id number] MTDD
[2018-04-18] MEDS: GUAIFENESIN/D-METH. 10 ML UDC PO SCH ×4 (07:57→20:12)
[2018-04-18] MEDS: MAGNESIUM OXIDE 400 MG TABLET PO SCH ×2 (09:20→22:18)
[2018-04-18] MEDS: BUMETANIDE 1 MG TABLET PO SCH ×2 (09:20→16:07)
[2018-04-18] MEDS: ISOSORBIDE MONONITRATE 60 MG TAB.ER.24H PO SCH (09:20)
[2018-04-18] MEDS: SOTALOL HCL 80 MG TABLET PO SCH ×2 (09:20→22:18)
[2018-04-18] MEDS: CLOPIDOGREL 75MG TABLET PO SCH (09:21)
[2018-04-18] MEDS ORDERED: SODIUM CHLORIDE NASAL SPRAY PRN (10:04)
[2018-04-18] MEDS: ALBUTEROL SULFATE (0.083%) 2.5 MG/3 ML NEB INH PRN ×2 (10:12→20:56)
[2018-04-18] MEDS: ANORO (UMECLIDINIUM & VILANTEROL) 62.5MCG/25MCG INH IH SCH (10:12)
--- NOTE | 2018-04-18 13:32 | Physician Progress Note ---
Subjective - Date Date of Physician Progress Note: 04/18/18 - Subjective Subjective Comment: Pt states that he feels a little worse than yesterday in terms of his SOB. O2 needs from 3L to 4L today. Objective - Vital Signs Vital Signs: Vital Signs - Last 24 Hrs Temp Pulse Pulse Pulse Resp BP Pulse Ox 04/18/18 10:15 74 18 93 L 04/18/18 09:00 61 22 04/18/18 08:30 97.6 F 61 22 153/78 94 L 04/18/18 06:00 97.9 F 67 16 130/63 94 L 04/17/18 22:00 98.1 F 78 17 137/65 94 L 04/17/18 21:05 77 20 93 L 04/17/18 20:46 83 78 16 04/17/18 18:00 98.6 F 16 126/77 91 L 04/17/18 16:00 78 18 94 L - General General Appearance: Alert, Oriented x3, Cooperative, Mild distress Limitations: No limitations - Head Head exam: Normal inspection - Eye Eye exam: Normal appearance, PERRL, EOMI. negative: Conjunctival injection Pupils: Normal accommodation - ENT ENT exam: Normal exam, Mucous membranes moist, Normal external ear exam, Normal orophraynx Ear exam: Normal external inspection. negative: External canal tenderness Nasal Exam: Normal inspection. negative: Discharge, Sinus tenderness Mouth exam: Normal external inspection, Tongue normal Teeth exam: Normal inspection. negative: Dental caries Throat exam: Normal inspection. negative: Tonsillar erythema, Tonsillar exudate - Neck Neck exam: Normal inspection, Full ROM. negative: Tenderness - Respiratory Respiratory exam: Decreased breath sounds (bases b/l, right worse than left). negative: Accessory muscle use, Respiratory distress, Wheezes - Cardiovascular Cardiovascular Exam: Regular rate, Normal rhythm, Normal heart sounds - GI/Abdominal GI/Abdominal exam: Soft, Normal bowel sounds. negative: Tenderness - Rectal Rectal exam: Deferred - exam: Deferred - Extremities Extremities exam: Normal inspection, Full ROM, Pedal edema (1+ b/l). negative: Tenderness - Back Back exam: Reports: Normal inspection. Denies: Muscle spasm, Rash noted, Tenderness - Neurological Neurological exam: Alert, Oriented X3 - Psychiatric Psychiatric exam: Normal affect, Normal mood - Skin Skin exam: Dry, Intact, Normal color, Warm Assessment and Plan - Assessment and Plan (1) COPD with exacerbation Current Visit: Yes Status: Acute Base Code: J44.1 - CHRONIC OBSTRUCTIVE PULMONARY DISEASE W (ACUTE) EXACERBATION Priority: High Comment: - O2 as needed, keep O2 sats b/t 88-92 - Resp Treatements per resp. - Anora ellipta as prescribed. - Steroids daily. - given worsening of SOB and increased need of O2, will do CT scan and possibly change abx. - Pt's states that he was hospitalized for COPD exacerbation in may 2017 and was treated for CHF exacerbation in Mar 2018. She states that he had a COPD exacerbation in between those events that was treated by PCP outpt. - ABG pending. (2) CHF (congestive heart failure) Current Visit: Yes Status: Chronic Qualifiers: Heart failure chronicity: unspecified Base Code: I50.9 - HEART FAILURE, UNSPECIFIED Priority: Medium Comment: - Was seen by Dr. Jenkins in the last few weeks inpt and then outpt. - Will keep meds as prescribed for now. - Alice was notified of admission. - having mild edema today, may consider small dose of lasix on top of bumex if needed. D/C'd fluids. - BNP wnl. (3) CAD (coronary artery disease) Current Visit: Yes Status: Chronic Qualifiers: Coronary Disease-Associated Artery/Lesion type: [place] artery [place] vs. transplanted heart: [place] heart Associated angina: with unstable angina Qualified Code(s): I25.110 - Atherosclerotic heart disease of [place] coronary artery with unstable angina pectoris Base Code: I25.10 - ATHSCL HEART DISEASE OF [place] CORONARY ARTERY W/O ANG PCTRS Comment: - coronary artery disease x 3 stents, last stent placed in 2015. - ECG shows NSR, troponin x 2 neg, - resume home meds (4) A-fib Current Visit: No Status: Chronic Base Code: I48.91 - UNSPECIFIED ATRIAL FIBRILLATION Comment: - NSR, rate controlled on Sotalol 80mg QD, cont night monitor. 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 - INR subtherapeutic, Pharmacy to dose. (5) DVT prophylaxis Current Visit: No Status: Acute Base Code: [id number] - Comment: - currently on full anticoagulation for a fib (6) Full code status Current Visit: No Status: Acute Base Code: Z78.9 - OTHER SPECIFIED HEALTH STATUS Comment: - FULL CODE - Disposition Disposition: pending improvement in sx Results - Labs Result Diagrams: 04/18/18 06:26 04/18/18 06:16 Labs Last 24 Hours: Laboratory Results - last 24 hr 04/18/18 04/18/18 04/18/18 06:16 06:26 06:26 WBC 20.6 H* RBC 3.72 L Hgb 10.5 L Hct 34.1 L MCV 91.7 MCH 28.2 MCHC 30.8 L RDW 13.2 Plt Count 410 H MPV 10.2 Neutrophils % 87.0 H Band Neutrophils % 3.0 Lymphocytes % 6.8 L Monocytes % 3.5 Eosinophils % 0.0 Basophils % 0.2 Lymphocytes 6.0 L Monocytes 4.0 Basophils 0.0 Eosinophil Count 0.0 PT 15.0 H INR 1.5 Sodium 141 Potassium 4.6 H Chloride 99 Carbon Dioxide 30.0 H Anion Gap 12.0 BUN 28 H Creatinine 1.0 Estimated GFR > 60 Random Glucose 176 H Calcium 9.4 Total Bilirubin < 0.20 L AST 19 ALT 30 Alkaline Phosphatase 76 Total Protein 7.3 Albumin 3.6 L Globulin 3.7 Albumin/Globulin Ratio 1.0 L DVT/PE Assessment - Risk for VTE Risk for VTE: No Risk Level: High Risk Assessment Date: 04/17/18 Risk Assessment Time: 11:41 VTE Orders Placed or Will Be Placed: No VTE Reason for No Prophylaxis: Contraindicated (on warfarin) - Active Medicaitons Current Medications: Current Medications Acetaminophen (Tylenol 500mg Tab) 500 mg PO Q6H PRN PRN Reason: PAIN - MILD TO MODERATE (1-7) Last Admin: 04/17/18 23:51 Dose: 500 mg Albuterol Sulfate (Albuterol Sulfate) 2.5 mg INH RESP.Q2H PRN PRN Reason: DIFFICULTY IN BREATHING Last Admin: 04/18/18 10:12 Dose: 2.5 mg Bumetanide (Bumex) 1 mg PO BIDDIUR [facility] Last Admin: 04/18/18 09:20 Dose: 1 mg Clopidogrel Bisulfate (Plavix) 75 mg PO QAM [facility] Last Admin: 04/18/18 09:21 Dose: 75 mg Doxazosin Mesylate (Cardura) 1 mg PO QHS [facility] Last Admin: 04/17/18 21:54 Dose: 1 mg Ezetimibe (Zetia) 10 mg PO QHS [facility] Last Admin: 04/17/18 21:52 Dose: 10 mg Guaifenesin (Robitussin Dm) 10 ml PO 0000,0800,1200,1600 [facility] Last Admin: 04/18/18 07:57 Dose: 10 ml Guaifenesin (Robitussin Dm) 10 ml PO 2000 [facility] Last Admin: 04/17/18 21:03 Dose: 10 ml Isosorbide Mononitrate (Imdur) 60 mg PO QAM [facility] Last Admin: 04/18/18 09:20 Dose: 60 mg Magnesium Oxide (Mag Ox) 400 mg PO BID [facility] Last Admin: 04/18/18 09:20 Dose: 400 mg Metformin HCl (Glucophage Ir) 500 mg PO QHS [facility] Last Admin: 04/17/18 21:53 Dose: 500 mg Methylprednisolone Sodium Succinate (Solu-Medrol) 60 mg IVP Q8HR [facility] Last Admin: 04/18/18 05:57 Dose: 60 mg Pantoprazole Sodium (Protonix) 40 mg PO DAILYAC [facility] Last Admin: 04/18/18 06:05 Dose: 40 mg Potassium Chloride (Klor-Con) 20 meq PO QHS [facility] Last Admin: 04/17/18 21:54 Dose: 20 meq Sodium Chloride ([place] Nasal) 1 ml NA Q1H PRN PRN Reason: DRY NASAL PASSAGES Last Admin: 04/18/18 10:33 Dose: 1 ml Sotalol HCl (Betapace) 80 mg PO BID [facility] Last Admin: 04/18/18 09:20 Dose: 80 mg Warfarin Sodium (Coumadin) 5 mg PO DAILY@1600 [facility] Stop: 04/18/18 16:01 Warfarin Sodium (Coumadin) 2.5 mg PO [id number] [facility] AMI Plan - Labs Result Diagrams: 04/18/18 06:26 04/18/18 06:16
[2018-04-18 13:34] LABS: ARTERIAL BLOOD GAS BASE EXCESS 3.3 mmol/L (-2 - 3); ARTERIAL BLOOD GAS HCO3 27.1 mmol/L (18-23); ARTERIAL BLOOD GAS pH 7.45 (7.35-7.45); CARBOXYHEMOGLOBIN 0.8 % (0-1.5); METHEMOGLOBIN 0.4 % (0.0-1.5); O2 HEMOGLOBIN 94.9 % vol (94-99); TOTAL HEMOGLOBIN 10.7 g/dl (14-18)
[2018-04-18 13:35] LABS: ALLEN TEST PASS
[2018-04-18] MEDS ORDERED: PIPERACILLIN SODIUM/TAZOBACTAM 4.5 GM in 0.9 % SODIUM CHLORIDE 100ML 100 ML IVPB SCH (14:15)
[2018-04-18] MEDS: PIPERACILLIN SODIUM/TAZOBACTAM 4.5 GM in 0.9 % SODIUM CHLORIDE 100ML 100 ML IVPB SCH ×2 (14:23→20:07)
[2018-04-18] MEDS ORDERED: WARFARIN 5 MG TAB PO SCH (16:00)
[2018-04-18] MEDS: POTASSIUM CHLORIDE 20 MEQ TABLET PO SCH (22:17)
[2018-04-18] MEDS: DOXAZOSIN MESYLATE 2 MG TABLET PO SCH (22:18)
[2018-04-18] MEDS: EZETIMIBE 10 MG TABLET PO SCH (22:19)
[2018-04-18] MEDS: LORAZEPAM 0.5 MG TABLET PO PRN (22:19)
[2018-04-18] MEDS: METFORMIN 500 MG TABLET PO SCH (22:19)
[2018-04-19] MEDS: GUAIFENESIN/D-METH. 10 ML UDC PO SCH ×2 (00:48→08:47)
[2018-04-19] MEDS: PIPERACILLIN SODIUM/TAZOBACTAM 4.5 GM in 0.9 % SODIUM CHLORIDE 100ML 100 ML IVPB SCH ×7 (00:53→20:53)
[2018-04-19] MEDS: PANTOPRAZOLE SODIUM 40 MG TABLET PO SCH (06:08)
[2018-04-19 06:10] LABS: BASO % 0.2 % (0-6); HEMOGLOBIN 11.6 gm/dl (14.0-18.0); LYMPH % 8.1 % (16-45); MEAN CELL VOLUME 91.6 fl (81-97); MEAN CORPUSCULAR HGB CONC 30.5 g/dl (32-36); MEAN PLATELET VOLUME 10.1 fl (7.4-10.4); MONO % 2.9 % (0-9); PLATELET COUNT 395 K/uL (130-400); RED BLOOD COUNT 4.15 M/uL (4.40-5.70); RED CELL DISTRIBUTION WIDTH 13.2 % (11.5-14.5); WHITE BLOOD COUNT W/O DIFF 17.7 K/uL (4.2-12.2)
[2018-04-19 06:14] LABS: MEAN CORPUSCULAR HEMOGLOBIN 27.9 pg (27-33)
[2018-04-19 06:19] LABS: INR 1.5; PROTHROMBIN TIME (PATIENT) 14.7 SECONDS (9.5-12.1)
[2018-04-19 06:35] LABS: ALBUMIN 3.8 g/dL (4.0-5.0); ALKALINE PHOSPHATASE 73 U/L (55-149); ALT/SGPT 57 U/L (<41); AST/SGOT 30 U/L (10.0-50.0); BILIRUBIN,TOTAL < 0.20 mg/dL (0.2-1.0); BLOOD UREA NITROGEN 22 mg/dL (6-20); CREATININE 0.8 mg/dL (0.7-1.2); EST GLOMERULAR FILTRATION RATE > 60 mL/min; GLUCOSE,RANDOM 175 mg/dL (74-109); TOTAL PROTEIN 7.5 g/dL (6.6-8.7)
[2018-04-19] MEDS: PREDNISONE 20 MG TAB PO SCH (08:48)
[2018-04-19] MEDS: ALBUTEROL SULFATE (0.083%) 2.5 MG/3 ML NEB INH PRN ×3 (09:44→21:59)
[2018-04-19] MEDS: ANORO (UMECLIDINIUM & VILANTEROL) 62.5MCG/25MCG INH IH SCH (09:44)
[2018-04-19] MEDS: BUMETANIDE 1 MG TABLET PO SCH ×2 (10:39→17:00)
[2018-04-19] MEDS: CLOPIDOGREL 75MG TABLET PO SCH (10:39)
[2018-04-19] MEDS: MAGNESIUM OXIDE 400 MG TABLET PO SCH ×2 (10:40→22:20)
[2018-04-19] MEDS: SOTALOL HCL 80 MG TABLET PO SCH ×2 (10:40→22:23)
[2018-04-19] MEDS: ISOSORBIDE MONONITRATE 60 MG TAB.ER.24H PO SCH (10:40)
--- NOTE | 2018-04-19 11:21 | Physician Progress Note ---
Subjective - Date Date of Physician Progress Note: 04/19/18 - Subjective Subjective Comment: Pt is feeling much better than yesterday. Feels less SOB. No complaints other than cough. Objective - Vital Signs Vital Signs: Vital Signs - Last 24 Hrs Temp Pulse Pulse Pulse Resp BP Pulse Ox 04/19/18 10:00 97.7 F 69 18 114/59 95 04/19/18 09:59 72 18 92 L 04/19/18 09:00 18 04/19/18 06:00 97.6 F 54 L 52 L 18 166/70 91 L 04/18/18 22:00 97.7 F 61 20 129/61 97 04/18/18 21:00 61 20 04/18/18 20:56 60 20 91 L 04/18/18 17:26 97.6 F 60 60 20 151/75 95 - General General Appearance: Alert, Oriented x3, Cooperative, No acute distress Limitations: No limitations - Head Head exam: Normal inspection - Eye Eye exam: Normal appearance, PERRL, EOMI. negative: Conjunctival injection Pupils: Normal accommodation - ENT ENT exam: Normal exam, Mucous membranes moist, Normal external ear exam, Normal orophraynx Ear exam: Normal external inspection. negative: External canal tenderness Nasal Exam: Normal inspection. negative: Discharge, Sinus tenderness Mouth exam: Normal external inspection, Tongue normal Teeth exam: Normal inspection. negative: Dental caries Throat exam: Normal inspection. negative: Tonsillar erythema, Tonsillar exudate - Neck Neck exam: Normal inspection, Full ROM. negative: Tenderness - Respiratory Respiratory exam: Decreased breath sounds ( right improved but still decreased compared to L). negative: Accessory muscle use, Respiratory distress, Wheezes - Cardiovascular Cardiovascular Exam: Regular rate, Normal rhythm, Normal heart sounds - GI/Abdominal GI/Abdominal exam: Soft, Normal bowel sounds. negative: Tenderness - Rectal Rectal exam: Deferred - exam: Deferred - Extremities Extremities exam: Normal inspection, Full ROM, Pedal edema (1+ b/l). negative: Tenderness - Back Back exam: Reports: Normal inspection. Denies: Muscle spasm, Rash noted, Tenderness - Neurological Neurological exam: Alert, Oriented X3 - Psychiatric Psychiatric exam: Normal affect, Normal mood - Skin Skin exam: Dry, Intact, Normal color, Warm Assessment and Plan - Assessment and Plan (1) COPD with exacerbation Current Visit: Yes Status: Acute Base Code: J44.1 - CHRONIC OBSTRUCTIVE PULMONARY DISEASE W (ACUTE) EXACERBATION Priority: High Comment: - O2 as needed, keep O2 sats b/t 88-92. Currently down to 1.5L from 3L NC. - Resp Treatements per resp. - Anora ellipta as prescribed. - Steroids daily. - CT chest did not identify PNA or fluid. - atelectasis seen in the R base, encouraged deep breathing and walking daily. - abx changed to cover pseudomonas and COPD exacerbation. Pt high risk for pseudomonas given recent hospitalization hx. - WBC trending down from 20->17.5 today. - Mucinex BID 600mg and Tessalon perles for cough added. - D/C'd robitussin DM (2) CHF (congestive heart failure) Current Visit: Yes Status: Chronic Qualifiers: Heart failure chronicity: unspecified Base Code: I50.9 - HEART FAILURE, UNSPECIFIED Priority: Medium Comment: - Was seen by Dr. Jenkins in the last few weeks inpt and then outpt. - Will keep meds as prescribed for now. - Alice was notified of admission. - having mild edema today, may consider small dose of lasix on top of bumex if needed. - BNP wnl. (3) CAD (coronary artery disease) Current Visit: Yes Status: Chronic Qualifiers: Coronary Disease-Associated Artery/Lesion type: [place] artery [place] vs. transplanted heart: [place] heart Associated angina: with unstable angina Qualified Code(s): I25.110 - Atherosclerotic heart disease of [place] coronary artery with unstable angina pectoris Base Code: I25.10 - ATHSCL HEART DISEASE OF [place] CORONARY ARTERY W/O ANG PCTRS Priority: Low Comment: - coronary artery disease x 3 stents, last stent placed in 2016. 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 - INR subtherapeutic, Pharmacy to dose. (5) DVT prophylaxis Current Visit: No Status: Acute Base Code: [id number] - Comment: - currently on full anticoagulation for a fib (6) Full code status Current Visit: No Status: Acute Base Code: Z78.9 - OTHER SPECIFIED HEALTH STATUS Comment: - FULL CODE - Disposition Disposition: pending improvement in sx Results - Labs Result Diagrams: 04/19/18 06:02 04/19/18 06:02 Labs Last 24 Hours: Laboratory Results - last 24 hr 04/18/18 04/19/18 04/19/18 13:26 06:02 06:02 WBC 17.7 H RBC 4.15 L Hgb 11.6 L Hct 38.0 L MCV 91.6 MCH 27.9 MCHC 30.5 L RDW 13.2 Plt Count 395 MPV 10.1 Neutrophils % 87.0 H Band Neutrophils % 2.0 Lymphocytes % 8.1 L Monocytes % 2.9 Eosinophils % 0.0 Basophils % 0.2 Lymphocytes 10.0 L Monocytes 1.0 Basophils 0.0 Eosinophil Count 0.0 PT 14.7 H INR 1.5 Puncture Site Left wrist pCO2 40.0 pO2 78.0 L HCO3 27.1 H Oxyhemoglobin 94.9 ABG pH 7.45 ABG O2 Saturation 96.0 ABG Base Excess 3.3 H Shan Test Pass Carboxyhemoglobin 0.8 Methemoglobin 0.4 Total Hemoglobin 10.7 L Actual Respiration Rate 18.0 FiO2 Not Reportable Sodium Potassium Chloride Carbon Dioxide Anion Gap BUN Creatinine Estimated GFR Random Glucose Calcium Total Bilirubin AST ALT Alkaline Phosphatase Total Protein Albumin Globulin Albumin/Globulin Ratio 04/19/18 06:02 WBC RBC Hgb Hct MCV MCH MCHC RDW Plt Count MPV Neutrophils % Band Neutrophils % Lymphocytes % Monocytes % Eosinophils % Basophils % Lymphocytes Monocytes Basophils Eosinophil Count PT INR Puncture Site pCO2 pO2 HCO3 Oxyhemoglobin ABG pH ABG O2 Saturation ABG Base Excess Shan Test Carboxyhemoglobin Methemoglobin Total Hemoglobin Actual Respiration Rate FiO2 Sodium 142 Potassium 4.2 Chloride 98 Carbon Dioxide 31.0 H Anion Gap 13.0 BUN 22 H Creatinine 0.8 Estimated GFR > 60 Random Glucose 175 H Calcium 9.5 Total Bilirubin < 0.20 L AST 30 ALT 57 H Alkaline Phosphatase 73 Total Protein 7.5 Albumin 3.8 L Globulin 3.7 Albumin/Globulin Ratio 1.0 L DVT/PE Assessment - Risk for VTE Risk for VTE: No Risk Level: High Risk Assessment Date: 04/17/18 Risk Assessment Time: 11:41 VTE Orders Placed or Will Be Placed: No VTE Reason for No Prophylaxis: Contraindicated (on warfarin) - Active Medicaitons Current Medications: Current Medications Acetaminophen (Tylenol 500mg Tab) 500 mg PO Q6H PRN PRN Reason: PAIN - MILD TO MODERATE (1-7) Last Admin: 04/17/18 23:51 Dose: 500 mg Albuterol Sulfate (Albuterol Sulfate) 2.5 mg INH RESP.Q2H PRN PRN Reason: DIFFICULTY IN BREATHING Last Admin: 04/19/18 09:44 Dose: 2.5 mg Benzonatate (Tessalon) 200 mg PO TID [facility] Bumetanide (Bumex) 1 mg PO BIDDIUR [facility] Last Admin: 04/19/18 10:39 Dose: 1 mg Clopidogrel Bisulfate (Plavix) 75 mg PO QAM [facility] Last Admin: 04/19/18 10:39 Dose: 75 mg Doxazosin Mesylate (Cardura) 1 mg PO QHS [facility] Last Admin: 04/18/18 22:18 Dose: 1 mg Ezetimibe (Zetia) 10 mg PO QHS [facility] Last Admin: 04/18/18 22:19 Dose: 10 mg Guaifenesin (Mucinex) 600 mg PO BID [facility] Piperacillin Sod/Tazobactam (Sod 4.5 gm/ Sodium Chloride) 100 mls @ 200 mls/hr IVPB Q6H [facility] Last Admin: 04/19/18 09:42 Dose: Not Given Isosorbide Mononitrate (Imdur) 60 mg PO QAM [facility] Last Admin: 04/19/18 10:40 Dose: 60 mg Magnesium Oxide (Mag Ox) 400 mg PO BID [facility] Last Admin: 04/19/18 10:40 Dose: 400 mg Metformin HCl (Glucophage Ir) 500 mg PO QHS [facility] Last Admin: 04/18/18 22:19 Dose: Not Given Pantoprazole Sodium (Protonix) 40 mg PO DAILYAC [facility] Last Admin: 04/19/18 06:08 Dose: 40 mg Potassium Chloride (Klor-Con) 20 meq PO QHS [facility] Last Admin: 04/18/18 22:17 Dose: 20 meq Prednisone (Prednisone 20mg) [facility] [place] Last Admin: 04/19/18 08:48 Dose: 40 mg Sodium Chloride ([place] Nasal) 1 ml NA Q1H PRN PRN Reason: DRY NASAL PASSAGES Last Admin: 04/18/18 10:33 Dose: 1 ml Sotalol HCl (Betapace) 80 mg PO BID [facility] Last Admin: 04/19/18 10:40 Dose: 80 mg Warfarin Sodium (Coumadin) 2.5 mg PO [id number] [facility] AMI Plan - Labs Result Diagrams: 04/19/18 06:02 04/19/18 06:02
[2018-04-19] MEDS: GUAIFENESIN 600 MG TABCR PO SCH ×2 (12:34→22:21)
[2018-04-19] MEDS: BENZONATATE 100 MG CAPSULE PO SCH ×3 (12:34→22:21)
[2018-04-19] MEDS ORDERED: BENZONATATE 100 MG CAPSULE PO SCH (16:00)
[2018-04-19] MEDS ORDERED: WARFARIN 2.5 MG TAB PO SCH (16:00)
[2018-04-19] MEDS: POTASSIUM CHLORIDE 20 MEQ TABLET PO SCH (22:19)
[2018-04-19] MEDS: DOXAZOSIN MESYLATE 2 MG TABLET PO SCH (22:19)
[2018-04-19] MEDS: METFORMIN 500 MG TABLET PO SCH (22:21)
[2018-04-19] MEDS: EZETIMIBE 10 MG TABLET PO SCH (22:21)
[2018-04-19] MEDS: LORAZEPAM 0.5 MG TABLET PO PRN (22:25)
--- NOTE | 2018-04-19 23:43 | CT SCAN REPORT ---
EXAM: CT SCAN CHEST W CONTRAST HISTORY: DIFFICULTY IN BREATHING. TECHNIQUE: Sequential axial images were obtained from the thoracic inlet through the bilateral adrenal glands after intravenous administration of 100 mL of Omnipaque-300 contrast material. FINDINGS: No mass or filling defect to suggest pulmonary embolus. The thoracic aorta appears normal. There is coronary artery vascular calcification. The heart size is normal. No pericardial effusion. No infiltrate or pleural effusion. Mild atelectasis right lung base. There are subcentimeter low-density lesions in the liver. IMPRESSION: 1. NO CT FINDINGS SUGGESTIVE OF PULMONARY EMBOLISM. 2. ATELECTASIS RIGHT LUNG BASE. 3. SUBCENTIMETER LOW-DENSITY LESIONS IN THE LIVER. JOB NUMBER: [id number] MTDD
[2018-04-20] MEDS: PIPERACILLIN SODIUM/TAZOBACTAM 4.5 GM in 0.9 % SODIUM CHLORIDE 100ML 100 ML IVPB SCH ×6 (02:01→19:55)
[2018-04-20] MEDS: PANTOPRAZOLE SODIUM 40 MG TABLET PO SCH (06:04)
[2018-04-20 06:32] LABS: HEMATOCRIT 39.7 % (42.0-52.0); HEMOGLOBIN 12.1 gm/dl (14.0-18.0); MEAN CELL VOLUME 91.9 fl (81-97); MEAN CORPUSCULAR HGB CONC 30.5 g/dl (32-36); MEAN PLATELET VOLUME 10.6 fl (7.4-10.4); PLATELET COUNT 401 K/uL (130-400); RED BLOOD COUNT 4.32 M/uL (4.40-5.70); RED CELL DISTRIBUTION WIDTH 13.4 % (11.5-14.5); WHITE BLOOD COUNT W/O DIFF 16.7 K/uL (4.2-12.2)
[2018-04-20 06:41] LABS: PROTHROMBIN TIME (PATIENT) 19.8 SECONDS (9.5-12.1)
[2018-04-20 06:47] LABS: ALBUMIN 3.7 g/dL (4.0-5.0); ALKALINE PHOSPHATASE 69 U/L (55-149); ALT/SGPT 79 U/L (<41); AST/SGOT 32 U/L (10.0-50.0); BILIRUBIN,TOTAL < 0.20 mg/dL (0.2-1.0); BLOOD UREA NITROGEN 23 mg/dL (6-20); CREATININE 0.9 mg/dL (0.7-1.2); EST GLOMERULAR FILTRATION RATE > 60 mL/min; GLUCOSE,RANDOM 133 mg/dL (74-109); TOTAL PROTEIN 7.3 g/dL (6.6-8.7)
[2018-04-20] MEDS: PREDNISONE 20 MG TAB PO SCH (08:12)
[2018-04-20] MEDS: GUAIFENESIN 600 MG TABCR PO SCH (09:28)
[2018-04-20] MEDS: CLOPIDOGREL 75MG TABLET PO SCH (09:29)
[2018-04-20] MEDS: BUMETANIDE 1 MG TABLET PO SCH ×2 (09:29→15:22)
[2018-04-20] MEDS: MAGNESIUM OXIDE 400 MG TABLET PO SCH ×2 (09:29→21:28)
[2018-04-20] MEDS: ISOSORBIDE MONONITRATE 60 MG TAB.ER.24H PO SCH (09:29)
[2018-04-20] MEDS: SOTALOL HCL 80 MG TABLET PO SCH ×2 (09:29→21:25)
[2018-04-20] MEDS: BENZONATATE 100 MG CAPSULE PO SCH ×3 (09:29→21:28)
[2018-04-20] MEDS: ALBUTEROL SULFATE (0.083%) 2.5 MG/3 ML NEB INH PRN ×2 (09:43→15:58)
[2018-04-20] MEDS: ANORO (UMECLIDINIUM & VILANTEROL) 62.5MCG/25MCG INH IH SCH (09:43)
[2018-04-20] MEDS ORDERED: FUROSEMIDE IV 40MG/4ML VIAL IVP ONE (11:03)
[2018-04-20] MEDS ORDERED: GUAIFENESIN 600 MG TABCR PO ONE (12:59)
--- NOTE | 2018-04-20 13:02 | Physician Progress Note ---
Subjective - Date Date of Physician Progress Note: 04/20/18 - Subjective Subjective Comment: Pt sitting in the chair without O2 today and satting 93%. Still complains of some mucus in his upper airways but other than that no complaints. Cough has improved. Objective - Vital Signs Vital Signs: Vital Signs - Last 24 Hrs Temp Pulse Pulse Resp BP BP Pulse Ox 04/20/18 09:58 73 18 93 L 04/20/18 09:05 97.7 F 72 18 118/46 100 04/20/18 06:00 98.1 F 62 16 107/65 94 L 04/20/18 02:00 98.2 F 75 18 129/76 95 04/19/18 22:00 98.3 F 64 93 H 16 141/87 93 L 04/19/18 21:00 16 04/19/18 14:35 58 L 18 99 - General General Appearance: Alert, Oriented x3, Cooperative, No acute distress Limitations: No limitations - Head Head exam: Normal inspection - Eye Eye exam: Normal appearance, PERRL, EOMI. negative: Conjunctival injection Pupils: Normal accommodation - ENT ENT exam: Normal exam, Mucous membranes moist, Normal external ear exam, Normal orophraynx Ear exam: Normal external inspection. negative: External canal tenderness Nasal Exam: Normal inspection. negative: Discharge, Sinus tenderness Mouth exam: Normal external inspection, Tongue normal Teeth exam: Normal inspection. negative: Dental caries Throat exam: Normal inspection. negative: Tonsillar erythema, Tonsillar exudate - Neck Neck exam: Normal inspection, Full ROM. negative: Tenderness - Respiratory Respiratory exam: Decreased breath sounds ( right improved but still decreased compared to L). negative: Accessory muscle use, Respiratory distress, Wheezes - Cardiovascular Cardiovascular Exam: Regular rate, Normal rhythm, Normal heart sounds - GI/Abdominal GI/Abdominal exam: Soft, Normal bowel sounds. negative: Tenderness - Rectal Rectal exam: Deferred - exam: Deferred - Extremities Extremities exam: Normal inspection, Full ROM, Pedal edema (2+ b/l). negative: Tenderness - Back Back exam: Reports: Normal inspection. Denies: Muscle spasm, Rash noted, Tenderness - Neurological Neurological exam: Alert, Oriented X3 - Psychiatric Psychiatric exam: Normal affect, Normal mood - Skin Skin exam: Dry, Intact, Normal color, Warm Assessment and Plan - Assessment and Plan (1) COPD with exacerbation Current Visit: Yes Status: Acute Base Code: J44.1 - CHRONIC OBSTRUCTIVE PULMONARY DISEASE W (ACUTE) EXACERBATION Priority: High Comment: - O2 as needed, keep O2 sats b/t 88-92. Currently on RA when not active and satting 93%. - On exertion may need O2 - home Oxygen qualifier ordered - to prepare for D/C in AM. - Resp Treatements per resp. - Anora ellipta as prescribed. - Steroids daily x total 5 days. - CT chest did not identify PNA or fluid. - atelectasis seen in the R base, encouraged deep breathing and walking daily. - abx changed to cover pseudomonas and COPD exacerbation. Pt high risk for pseudomonas given recent hospitalization hx. - WBC trending down from 20->17.5-> 16.7 today - Mucinex BID 1200mg and Tessalon perles for cough added. - D/C'd robitussin DM (2) CHF (congestive heart failure) Current Visit: Yes Status: Chronic Qualifiers: Heart failure chronicity: unspecified Base Code: I50.9 - HEART FAILURE, UNSPECIFIED Priority: Medium Comment: - Was seen by Dr. Jenkins in the last few weeks inpt and then outpt. - Alice was notified of admission. On admission BNP wnl. - having 2+ edema today with elevated BNP today. Lasix 40mg IV given on top of bumex. - recheck edema in AM. (3) CAD (coronary artery disease) Current Visit: Yes Status: Chronic Qualifiers: Coronary Disease-Associated Artery/Lesion type: [place] artery [place] vs. transplanted heart: [place] heart Associated angina: with unstable angina Qualified Code(s): I25.110 - Atherosclerotic heart disease of [place] coronary artery with unstable angina pectoris Base Code: I25.10 - ATHSCL HEART DISEASE OF [place] CORONARY ARTERY W/O ANG PCTRS Priority: Low Comment: - coronary artery disease x 3 stents, last stent placed in 2016. 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 - INR now theraputic, Pharmacy to dose. (5) DVT prophylaxis Current Visit: No Status: Acute Base Code: [id number] - Comment: - currently on full anticoagulation for a fib (6) Full code status Current Visit: No Status: Acute Base Code: Z78.9 - OTHER SPECIFIED HEALTH STATUS Comment: - FULL CODE - Disposition Disposition: likely home tomorrow with O2 on ambulation and picc line for zosyn. Results - Labs Result Diagrams: 04/20/18 06:05 04/20/18 06:05 Labs Last 24 Hours: Laboratory Results - last 24 hr 04/19/18 04/19/18 04/20/18 16:47 16:57 06:05 WBC RBC Hgb Hct MCV MCH MCHC RDW Plt Count MPV Neutrophils % Band Neutrophils % Eosinophils % Basophils % Lymphocytes Monocytes Basophils Eosinophil Count PT Cancelled 19.8 H INR Cancelled 2.0 Sodium Potassium Chloride Carbon Dioxide Anion Gap BUN Creatinine Estimated GFR POC Glucose 247 H Random Glucose Hemoglobin A1c Calcium Total Bilirubin AST ALT Alkaline Phosphatase NT-Pro-B Natriuret Pep Total Protein Albumin Globulin Albumin/Globulin Ratio 04/20/18 04/20/18 04/20/18 06:05 06:05 06:05 WBC 16.7 H RBC 4.32 L Hgb 12.1 L Hct 39.7 L MCV 91.9 MCH 28.0 MCHC 30.5 L RDW 13.4 Plt Count 401 H MPV 10.6 H Neutrophils % 73.0 Band Neutrophils % 1.0 Eosinophils % Not Reportable Basophils % Not Reportable Lymphocytes 20.0 Monocytes 6.0 Basophils 0.0 Eosinophil Count 0.0 PT INR Sodium 141 Potassium 4.1 Chloride 99 Carbon Dioxide 31.0 H Anion Gap 11.0 BUN 23 H Creatinine 0.9 Estimated GFR > 60 POC Glucose Random Glucose 133 H Hemoglobin A1c 6.20 H Calcium 9.1 Total Bilirubin < 0.20 L AST 32 ALT 79 H Alkaline Phosphatase 69 NT-Pro-B Natriuret Pep Total Protein 7.3 Albumin 3.7 L Globulin 3.6 Albumin/Globulin Ratio 1.0 L 04/20/18 06:05 WBC RBC Hgb Hct MCV MCH MCHC RDW Plt Count MPV Neutrophils % Band Neutrophils % Eosinophils % Basophils % Lymphocytes Monocytes Basophils Eosinophil Count PT INR Sodium Potassium Chloride Carbon Dioxide Anion Gap BUN Creatinine Estimated GFR POC Glucose Random Glucose Hemoglobin A1c Calcium Total Bilirubin AST ALT Alkaline Phosphatase NT-Pro-B Natriuret Pep 399.80 H Total Protein Albumin Globulin Albumin/Globulin Ratio DVT/PE Assessment - Risk for VTE Risk for VTE: No Risk Level: High Risk Assessment Date: 04/17/18 Risk Assessment Time: 11:41 VTE Orders Placed or Will Be Placed: No VTE Reason for No Prophylaxis: Contraindicated (on warfarin) - Active Medicaitons Current Medications: Current Medications Acetaminophen (Tylenol 500mg Tab) 500 mg PO Q6H PRN PRN Reason: PAIN - MILD TO MODERATE (1-7) Last Admin: 04/17/18 23:51 Dose: 500 mg Albuterol Sulfate (Albuterol Sulfate) 2.5 mg INH RESP.Q2H PRN PRN Reason: DIFFICULTY IN BREATHING Last Admin: 04/20/18 09:43 Dose: 2.5 mg Benzonatate (Tessalon) 200 mg PO TID [facility] Last Admin: 04/20/18 09:29 Dose: 200 mg Bumetanide (Bumex) 1 mg PO BIDDIUR [facility] Last Admin: 04/20/18 09:29 Dose: 1 mg Clopidogrel Bisulfate (Plavix) 75 mg PO QAM [facility] Last Admin: 04/20/18 09:29 Dose: 75 mg Doxazosin Mesylate (Cardura) 1 mg PO QHS [facility] Last Admin: 04/19/18 22:19 Dose: 1 mg Ezetimibe (Zetia) 10 mg PO QHS [facility] Last Admin: 04/19/18 22:21 Dose: 10 mg Guaifenesin (Mucinex) 600 mg PO BID [facility] Last Admin: 04/20/18 09:28 Dose: 600 mg Piperacillin Sod/Tazobactam (Sod 4.5 gm/ Sodium Chloride) 100 mls @ 200 mls/hr IVPB Q6H [facility] Last Infusion: 04/20/18 09:09 Dose: Infused Isosorbide Mononitrate (Imdur) [facility] Last Admin: 04/20/18 09:29 Dose: 60 mg Magnesium Oxide (Mag Ox) 400 mg PO BID [facility] Last Admin: 04/20/18 09:29 Dose: 400 mg Metformin HCl (Glucophage Ir) 500 mg PO QHS [facility] Last Admin: 04/19/18 22:21 Dose: 500 mg Pantoprazole Sodium (Protonix) 40 mg PO DAILYAC [facility] Last Admin: 04/20/18 06:04 Dose: 40 mg Potassium Chloride (Klor-Con) 20 meq PO QHS [facility] Last Admin: 04/19/18 22:19 Dose: 20 meq Prednisone (Prednisone 20mg) 40 mg PO DAILYWM [facility] Last Admin: 04/20/18 08:12 Dose: 40 mg Sodium Chloride ([place] Nasal) 1 ml NA Q1H PRN PRN Reason: DRY NASAL PASSAGES Last Admin: 04/18/18 10:33 Dose: 1 ml Sotalol HCl (Betapace) 80 mg PO BID [facility] Last Admin: 04/20/18 09:29 Dose: 80 mg Warfarin Sodium (Coumadin) 2.5 mg PO [id number] [facility] AMI Plan - Labs Result Diagrams: 04/20/18 06:05 04/20/18 06:05
[2018-04-20] MEDS: WARFARIN 2.5 MG TAB PO SCH (15:23)
[2018-04-20] MEDS ORDERED: WARFARIN 5 MG TAB PO SCH (16:00)
[2018-04-20] MEDS: EZETIMIBE 10 MG TABLET PO SCH (21:25)
[2018-04-20] MEDS: DOXAZOSIN MESYLATE 2 MG TABLET PO SCH (21:28)
[2018-04-20] MEDS: POTASSIUM CHLORIDE 20 MEQ TABLET PO SCH (21:28)
[2018-04-20] MEDS: METFORMIN 500 MG TABLET PO SCH (21:28)
[2018-04-20] MEDS: GUAIFENESIN 1,200 MG TABLET PO SCH (21:29)
[2018-04-20] MEDS ORDERED: LORAZEPAM 0.5 MG TABLET PO ONE (22:00)
[2018-04-21] MEDS: PIPERACILLIN SODIUM/TAZOBACTAM 4.5 GM in 0.9 % SODIUM CHLORIDE 100ML 100 ML IVPB SCH ×5 (01:37→20:04)
[2018-04-21] MEDS: PANTOPRAZOLE SODIUM 40 MG TABLET PO SCH (06:11)
[2018-04-21 06:42] LABS: HEMOGLOBIN 13.1 gm/dl (14.0-18.0); MEAN CELL VOLUME 91.1 fl (81-97); MEAN CORPUSCULAR HEMOGLOBIN 28.4 pg (27-33); MEAN CORPUSCULAR HGB CONC 31.2 g/dl (32-36); MEAN PLATELET VOLUME 10.6 fl (7.4-10.4); PLATELET COUNT 399 K/uL (130-400); RED BLOOD COUNT 4.61 M/uL (4.40-5.70); RED CELL DISTRIBUTION WIDTH 13.4 % (11.5-14.5); WHITE BLOOD COUNT W/O DIFF 19.1 K/uL (4.2-12.2)
[2018-04-21 06:58] LABS: ALBUMIN 3.7 g/dL (4.0-5.0); ALKALINE PHOSPHATASE 67 U/L (55-149); ALT/SGPT 94 U/L (<41); AST/SGOT 28 U/L (10.0-50.0); BLOOD UREA NITROGEN 21 mg/dL (6-20); CREATININE 0.9 mg/dL (0.7-1.2); EST GLOMERULAR FILTRATION RATE > 60 mL/min; GLUCOSE,RANDOM 102 mg/dL (74-109); TOTAL PROTEIN 7.3 g/dL (6.6-8.7)
[2018-04-21] MEDS: PREDNISONE 20 MG TAB PO SCH (08:01)
[2018-04-21] MEDS: ISOSORBIDE MONONITRATE 60 MG TAB.ER.24H PO SCH (09:15)
[2018-04-21] MEDS: BENZONATATE 100 MG CAPSULE PO SCH ×3 (09:15→21:37)
[2018-04-21] MEDS: MAGNESIUM OXIDE 400 MG TABLET PO SCH ×2 (09:16→21:37)
[2018-04-21] MEDS: CLOPIDOGREL 75MG TABLET PO SCH (09:16)
[2018-04-21] MEDS: SOTALOL HCL 80 MG TABLET PO SCH ×2 (09:16→21:39)
[2018-04-21] MEDS: BUMETANIDE 1 MG TABLET PO SCH ×2 (09:16→16:30)
[2018-04-21] MEDS: GUAIFENESIN 1,200 MG TABLET PO SCH ×2 (09:17→21:39)
[2018-04-21] MEDS: ANORO (UMECLIDINIUM & VILANTEROL) 62.5MCG/25MCG INH IH SCH (09:51)
[2018-04-21] MEDS ORDERED: FUROSEMIDE IV 20MG/2ML VIAL IVP ONE (10:29)
[2018-04-21 10:43] LABS: INR 2.4; PROTHROMBIN TIME (PATIENT) 23.2 SECONDS (9.5-12.1)
--- NOTE | 2018-04-21 12:33 | Physician Progress Note ---
Subjective - Date Date of Physician Progress Note: 04/21/18 - Subjective Subjective Comment: Pt states that he is feeling better than yesterday. He does complain of RUQ aching, but he states that this has been present for over one month. He denies any liver issues in the past. His liver enzymes have been trending up. He is willing to get U/S for evaluation. Objective - Vital Signs Vital Signs: Vital Signs - Last 24 Hrs Temp Pulse Pulse Pulse Resp BP BP 04/21/18 10:06 84 16 04/21/18 09:00 114 H 67 20 04/21/18 08:46 97.9 F 114 H 67 20 04/21/18 06:00 97.3 F L 60 16 121/66 04/20/18 22:00 97.5 F L 67 16 107/65 04/20/18 20:45 69 18 04/20/18 18:00 98.2 F 69 18 112/62 04/20/18 15:58 71 18 04/20/18 15:10 98.0 F 69 18 130/74 04/20/18 13:29 97.7 F 118/46 BP Pulse Ox 04/21/18 10:06 96 04/21/18 09:00 04/21/18 08:46 123/71 98 04/21/18 06:00 95 04/20/18 22:00 91 L 04/20/18 20:45 04/20/18 18:00 96 04/20/18 15:58 95 04/20/18 15:10 93 L 04/20/18 13:29 - General General Appearance: Alert, Oriented x3, Cooperative, No acute distress Limitations: No limitations - Head Head exam: Normal inspection - Eye Eye exam: Normal appearance, PERRL, EOMI. negative: Conjunctival injection Pupils: Normal accommodation - ENT ENT exam: Normal exam, Mucous membranes moist, Normal external ear exam, Normal orophraynx Ear exam: Normal external inspection. negative: External canal tenderness Nasal Exam: Normal inspection. negative: Discharge, Sinus tenderness Mouth exam: Normal external inspection, Tongue normal Teeth exam: Normal inspection. negative: Dental caries Throat exam: Normal inspection. negative: Tonsillar erythema, Tonsillar exudate - Neck Neck exam: Normal inspection, Full ROM. negative: Tenderness - Respiratory Respiratory exam: Decreased breath sounds ( right improving but still decreased compared to L). negative: Accessory muscle use, Respiratory distress, Wheezes - Cardiovascular Cardiovascular Exam: Regular rate, Normal rhythm, Normal heart sounds - GI/Abdominal GI/Abdominal exam: Soft, Normal bowel sounds, Tenderness (to palpation of the RUQ, meeks sign +) - Rectal Rectal exam: Deferred - exam: Deferred - Extremities Extremities exam: Normal inspection, Full ROM, Pedal edema (2+ b/l). negative: Tenderness - Back Back exam: Reports: Normal inspection. Denies: Muscle spasm, Rash noted, Tenderness - Neurological Neurological exam: Alert, Oriented X3 - Psychiatric Psychiatric exam: Normal affect, Normal mood - Skin Skin exam: Dry, Intact, Normal color, Warm Assessment and Plan - Assessment and Plan (1) COPD with exacerbation Current Visit: Yes Status: Acute Base Code: J44.1 - CHRONIC OBSTRUCTIVE PULMONARY DISEASE W (ACUTE) EXACERBATION Priority: High Comment: - O2 as needed, keep O2 sats b/t 88-92. Currently not needing O2 on RA or ambulation. - On exertion may need O2 - home Oxygen qualifier ordered. - Resp Treatements per resp. - Anora ellipta as prescribed. - Steroids daily x total 5 days. Completed. - CT chest did not identify PNA or fluid. - atelectasis seen in the R base, encouraged deep breathing and walking daily. - abx changed to cover pseudomonas and COPD exacerbation. Pt high risk for pseudomonas given recent hospitalization hx. - WBC was trending down from 20 -> 16, but trended back up today to 19. Clinically the pt does look better but I would like to monitor him for one more day. He does states that in the past his "WBC count was wonky and I went to the business applications specialist - it eventually trended down". - Procalcitonin ordered. - Given that pt was getting worse without pseudomonal coverage, and because of his recent hospitalization - I will continue Zosyn and not de-escalate his abx to levaquin given less pseudomonal coverage. Picc line to be inserted. Will complete 7 day course of Zosyn. Currently on day 4/. - Mucinex BID 1200mg and Tessalon perles for cough. (2) RUQ pain Current Visit: Yes Status: Acute Base Code: R10.11 - RIGHT UPPER QUADRANT PAIN Priority: Medium Comment: - Pt states that he has had this pain for the last month or so after his rib fracture, but the fracture was on the opposite side. - Upon admission his liver enzymes were normal but they have been trending up. - Pain on palpation noted of the RUQ and Meeks sign +. - Will get U/S done. - Possibly 2/2 to initial unasyn abx and the fact that his BNP had been up but unasyn switched to zosyn and BNP trending down with additional lasix doses. Despite this his ALT is still going up. Will also get Hep B/C labs. - Unless something is found on U/S, this could be followed and further worked up by PCP outpt. (3) CHF (congestive heart failure) Current Visit: Yes Status: Chronic Qualifiers: Heart failure chronicity: unspecified Base Code: I50.9 - HEART FAILURE, UNSPECIFIED Priority: Medium Comment: - Was seen by Dr. Jenkins in the last few weeks inpt and then outpt. - Alice was notified of admission. On admission BNP wnl. - having 1+ edema today with elevated BNP today but trending down from yesterday. Lasix 20mg IV given on top of bumex. - recheck edema in AM. (4) CAD (coronary artery disease) Current Visit: Yes Status: Chronic Qualifiers: Coronary Disease-Associated Artery/Lesion type: eek artery [place] vs. transplanted heart: eek heart Associated angina: with unstable angina Qualified Code(s): I25.110 - Atherosclerotic heart disease of eek coronary artery with unstable angina pectoris Base Code: I25.10 - ATHSCL HEART DISEASE OF [place] CORONARY ARTERY W/O ANG PCTRS Priority: Low Comment: - coronary artery disease x 3 stents, last stent placed in 2016. 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 - INR now theraputic, Pharmacy to dose. (6) DVT prophylaxis Current Visit: No Status: Acute Base Code: [id number] - Comment: - currently on full anticoagulation for a fib (7) Full code status Current Visit: No Status: Acute Base Code: Z78.9 - OTHER SPECIFIED HEALTH STATUS Comment: - FULL CODE - Disposition Disposition: likely home tomorrow with picc line, +/- O2, and U/S result. Results - Labs Result Diagrams: 04/21/18 06:20 04/21/18 06:20 Labs Last 24 Hours: Laboratory Results - last 24 hr 04/21/18 04/21/18 04/21/18 06:00 06:00 06:20 WBC 19.1 H RBC 4.61 Hgb 13.1 L Hct 42.0 MCV 91.1 MCH 28.4 MCHC 31.2 L RDW 13.4 Plt Count 399 MPV 10.6 H Neutrophils % 70.0 Band Neutrophils % 1.0 Eosinophils % Not Reportable Basophils % Not Reportable Lymphocytes 22.0 Monocytes 7.0 Basophils 0.0 Eosinophil Count 0.0 PT INR Sodium Potassium Chloride Carbon Dioxide Anion Gap BUN Creatinine Estimated GFR Random Glucose Calcium Total Bilirubin AST ALT Alkaline Phosphatase NT-Pro-B Natriuret Pep 177.30 H Total Protein Albumin Globulin Albumin/Globulin Ratio Procalcitonin 0.032 04/21/18 04/21/18 06:20 10:25 WBC RBC Hgb Hct MCV MCH MCHC RDW Plt Count MPV Neutrophils % Band Neutrophils % Eosinophils % Basophils % Lymphocytes Monocytes Basophils Eosinophil Count PT 23.2 H INR 2.4 Sodium 142 Potassium 4.0 Chloride 100 Carbon Dioxide 31.0 H Anion Gap 11.0 BUN 21 H Creatinine 0.9 Estimated GFR > 60 Random Glucose 102 Calcium 9.1 Total Bilirubin 0.20 AST 28 ALT 94 H Alkaline Phosphatase 67 NT-Pro-B Natriuret Pep Total Protein 7.3 Albumin 3.7 L Globulin 3.6 Albumin/Globulin Ratio 1.0 L Procalcitonin DVT/PE Assessment - Risk for VTE Risk for VTE: No Risk Level: High Risk Assessment Date: 04/17/18 Risk Assessment Time: 11:41 VTE Orders Placed or Will Be Placed: No VTE Reason for No Prophylaxis: Contraindicated (on warfarin) - Active Medicaitons Current Medications: Current Medications Acetaminophen (Tylenol 500mg Tab) 500 mg PO Q6H PRN PRN Reason: PAIN - MILD TO MODERATE (1-7) Last Admin: 04/17/18 23:51 Dose: 500 mg Albuterol Sulfate (Albuterol Sulfate) 2.5 mg INH RESP.Q2H PRN PRN Reason: DIFFICULTY IN BREATHING Last Admin: 04/20/18 15:58 Dose: 2.5 mg Benzonatate (Tessalon) 200 mg PO TID [facility] Last Admin: 04/21/18 09:15 Dose: 200 mg Bumetanide (Bumex) 1 mg PO BIDDIUR [facility] Last Admin: 04/21/18 09:16 Dose: 1 mg Clopidogrel Bisulfate (Plavix) 75 mg PO QAM [facility] Last Admin: 04/21/18 09:16 Dose: 75 mg Doxazosin Mesylate (Cardura) 1 mg PO QHS [facility] Last Admin: 04/20/18 21:28 Dose: Not Given Ezetimibe (Zetia) 10 mg PO QHS [facility] Last Admin: 04/20/18 21:25 Dose: 10 mg Guaifenesin (Mucinex) 1,200 mg PO BID [facility] Last Admin: 04/21/18 09:17 Dose: 1,200 mg Piperacillin Sod/Tazobactam (Sod 4.5 gm/ Sodium Chloride) 100 mls @ 200 mls/hr IVPB Q6H [facility] Last Infusion: 04/21/18 09:07 Dose: Infused Isosorbide Mononitrate (Imdur) 60 mg PO QAM [facility] Last Admin: 04/21/18 09:15 Dose: 60 mg Magnesium Oxide (Mag Ox) 400 mg PO BID [facility] Last Admin: 04/21/18 09:16 Dose: 400 mg Metformin HCl (Glucophage Ir) 500 mg PO QHS [facility] Last Admin: 04/20/18 21:28 Dose: 500 mg Pantoprazole Sodium (Protonix) 40 mg PO DAILYAC [facility] Last Admin: 04/21/18 06:11 Dose: 40 mg Potassium Chloride (Klor-Con) 20 meq PO QHS [facility] Last Admin: 04/20/18 21:28 Dose: 20 meq Sodium Chloride ([place] Nasal) 1 ml NA Q1H PRN PRN Reason: DRY NASAL PASSAGES Last Admin: 04/18/18 10:33 Dose: 1 ml Sotalol HCl (Betapace) 80 mg PO BID [facility] Last Admin: 04/21/18 09:16 Dose: 80 mg Warfarin Sodium (Coumadin) 2.5 mg PO [id number] [facility] Last Admin: 04/20/18 15:23 Dose: 2.5 mg AMI Plan - Labs Result Diagrams: 04/21/18 06:20 04/21/18 06:20
[2018-04-21 15:51] LABS: HEPATITIS B SURFACE ANTIGEN Nonreactive (Nonreactive); HEPATITIS C VIRUS ANTIBODY Nonreactive (Nonreactive)
[2018-04-21] MEDS: WARFARIN 2.5 MG TAB PO SCH (16:34)
[2018-04-21] MEDS: METFORMIN 500 MG TABLET PO SCH (21:37)
[2018-04-21] MEDS: EZETIMIBE 10 MG TABLET PO SCH (21:37)
[2018-04-21] MEDS: DOXAZOSIN MESYLATE 2 MG TABLET PO SCH (21:38)
[2018-04-21] MEDS: POTASSIUM CHLORIDE 20 MEQ TABLET PO SCH (21:38)
[2018-04-21] MEDS ORDERED: LORAZEPAM 0.5 MG TABLET PO ONE (22:00)
[2018-04-22] MEDS: PIPERACILLIN SODIUM/TAZOBACTAM 4.5 GM in 0.9 % SODIUM CHLORIDE 100ML 100 ML IVPB SCH ×3 (00:46→12:13)
--- NOTE | 2018-04-22 05:03 | ULTRASOUND REPORT ---
EXAM: COMPLETE ABDOMEN ULTRASOUND HISTORY: RIGHT UPPER ABDOMINAL QUADRANT PAIN, ELEVATED LIVER ENZYMES. HISTORY OF CHOLECYSTECTOMY. TECHNIQUE: Complete abdomen ultrasound was obtained. Comparison: None. FINDINGS: The pancreas is largely obscured by shadowing bowel gas. The visualized proximal abdominal aorta appears nondilated. The remainder of the aorta is obscured by shadowing bowel gas. Echogenic appearance of the visualized hepatic parenchyma. Nonvisualization of the gallbladder, compatible with patient's surgical history. The right renal length is 11.5 cm. No hydronephrosis. No shadowing calculus or focal mass demonstrated. The common bile duct measures 7 mm in diameter, likely within normal limits given patient's previous cholecystectomy. The left renal length is 12.4 cm. No hydronephrosis. No shadowing calculus or focal mass demonstrated. Unremarkable appearance of the spleen. No visible ascites. Unremarkable damon scale appearance of the inferior vena cava at the level of the liver. IMPRESSION: ECHOGENIC APPEARANCE OF THE VISUALIZED HEPATIC PARENCHYMA, SUGGESTIVE OF HEPATIC STEATOSIS. JOB NUMBER: [id number] MTDD
--- NOTE | 2018-04-22 05:06 | RADIOLOGY REPORT ---
EXAM: PORTABLE CHEST HISTORY: PICC LINE PLACEMENT. TECHNIQUE: A single PA view of the chest was obtained. Comparison: Chest radiograph 04/16/18. FINDINGS: Interval placement of a right sided PICC, catheter tip in the projection of the superior vena cava. The cardiac silhouette is within normal size limits. No new focal pulmonary opacities. No pleural effusion or pneumothorax. IMPRESSION: 1. INTERVAL PLACEMENT OF RIGHT SIDED PICC, TIP LIKELY WITHIN THE SUPERIOR VENA CAVA. 2. NO NEW/ACUTE LUNG FINDINGS. JOB NUMBER: [id number] MTDD
[2018-04-22] MEDS: PANTOPRAZOLE SODIUM 40 MG TABLET PO SCH (06:00)
[2018-04-22] MEDS ORDERED: PREDNISONE 20 MG TAB PO ONE (07:10)
[2018-04-22 07:51] LABS: HEMOGLOBIN 12.6 gm/dl (14.0-18.0); MEAN CELL VOLUME 90.1 fl (81-97); MEAN CORPUSCULAR HGB CONC 30.7 g/dl (32-36); MEAN PLATELET VOLUME 10.4 fl (7.4-10.4); PLATELET COUNT 371 K/uL (130-400); RED BLOOD COUNT 4.55 M/uL (4.40-5.70); RED CELL DISTRIBUTION WIDTH 13.5 % (11.5-14.5)
[2018-04-22 07:53] LABS: MEAN CORPUSCULAR HEMOGLOBIN 27.6 pg (27-33)
--- NOTE | 2018-04-22 08:09 | Discharge Note ---
VTE H&P Assessment - Risk for VTE Risk for VTE: No Risk Level: High Risk Assessment Date: 04/17/18 Risk Assessment Time: 11:41 VTE Orders Placed or Will Be Placed: No VTE Reason for No Prophylaxis: Contraindicated (on warfarin) Discharge Medications - Discharge Medications Prescriptions: Doxazosin Mesylate [Cardura] 1 mg PO QHS #30 tablet Ipratropium Br. 0.02% Neb [Atrovent 0.02% Neb] 0.5 mg NEB Q4HR #120 ml Trodzjrxtogm-Kbri-Iposofmo,Iso [Zosyn 4.5 gm/100 ml Galaxy Bag] 4.5 gm IV Q6HR # 28 froz.piggy Albuterol Sulfate 0.083% [Neb] [Albuterol Sulfate] 2.5 mg INH RESP.Q4H.WA PRN # 120 nebulization solution PRN Reason: Difficulty In Breathing Guaifenesin [Mucinex] 1,200 mg PO BID #60 tab.er.12h Prednisone [Prednisone 10Mg] 10 mg PO ASDIR #30 tab Warfarin Sodium [Coumadin] 2.5 mg PO [id number] #30 tablet Home Medications: Ambulatory Orders Omeprazole 40 mg PO DAILY 04/04/14 [Last Taken 04/03/14] Bumetanide 1 mg PO BID 06/01/17 [Last Taken Unknown] Clopidogrel Bisulfate [Plavix] 75 mg PO QAM 06/01/17 [Last Taken 06/01/17] Ezetimibe [Zetia] 10 mg PO QHS 06/01/17 [Last Taken Unknown] Isosorbide Mononitrate [Imdur] 60 mg PO QAM 06/01/17 [Last Taken 06/01/17] Magnesium Oxide 400 mg PO BID 06/01/17 [Last Taken 06/01/17] Metformin HCl 500 mg PO QHS 06/01/17 [Last Taken Unknown] Potassium Chloride 20 meq PO QHS 06/01/17 [Last Taken 06/01/17] Sotalol HCl [Betapace] 80 mg PO BID 06/01/17 [Last Taken 06/01/17] Albuterol Sulfate [Proair Hfa] 1 puff IH ASDIR 04/16/18 [Last Taken Unknown] Mometasone/Formoterol [Dulera 200 Mcg/5 Mcg Inhaler] 8.8 gm IH ASDIR PRN [Last Taken Unknown] Acetaminophen [Tylenol 500Mg Tab] 500 mg PO Q6H PRN tablet 04/22/18 [Last Taken Unknown] Albuterol Sulfate 0.083% [Neb] [Albuterol Sulfate] 2.5 mg INH RESP.Q4H.WA PRN # 120 nebulization solution 04/22/18 [Last Taken Unknown] Doxazosin Mesylate [Cardura] 1 mg PO QHS #30 tablet 04/22/18 [Last Taken Unknown ] Guaifenesin [Mucinex] 1,200 mg PO BID #60 tab.er.12h 04/22/18 [Last Taken Unknown] Ipratropium Br. 0.02% Neb [Atrovent 0.02% Neb] 0.5 mg NEB Q4HR #120 ml 04/22/18 [Last Taken Unknown] Cnxcjshwhamy-Enef-Vroldmlt,Iso [Zosyn 4.5 gm/100 ml Galaxy Bag] 4.5 gm IV Q6HR # 28 froz.piggy 04/22/18 [Last Taken Unknown] Prednisone [Prednisone 10Mg] 10 mg PO ASDIR #30 tab 04/22/18 [Last Taken Unknown ] Warfarin Sodium [Coumadin] 2.5 mg PO [id number] #30 tablet 04/22/18 [Last Taken Unknown] Discharge Note - Date Date of Discharge Note: 04/22/18 Disposition: Home, Self-Care Condition: (2) Stable Additional Instructions: follow up with Dr. Childs in 4-7 days follow up with crime analyst as scheduled dr. Ly to manage coumadin and please obtain prothrombin blood test on saturdayApril 28 and weekly for 3 weeks of stable as determined through Dr Ly. New coumadin dose 2.5 mg leaving the hospital IV antibiotics Zosyn 4.5 gm every 6 hours for one week through a pic line and family can evaluate and if still good can remove the pic line after his evaluation Dr. Childs patient request scripts for neb solution of albuterol and atrovent because cheaper than anora eliptia and he wants to continue dulera, use proair when mobile for rescue Forms: Patient Portal Access
[2018-04-22 08:20] LABS: INR 2.2; PROTHROMBIN TIME (PATIENT) 21.3 SECONDS (9.5-12.1)
[2018-04-22 08:22] LABS: BLOOD UREA NITROGEN 20 mg/dL (6-20); CREATININE 0.9 mg/dL (0.7-1.2); EST GLOMERULAR FILTRATION RATE > 60 mL/min; GLUCOSE,RANDOM 150 mg/dL (74-109)
[2018-04-22 08:38] LABS: ALT/SGPT 70 U/L (<41)
[2018-04-22] MEDS: CLOPIDOGREL 75MG TABLET PO SCH (09:14)
[2018-04-22] MEDS: BUMETANIDE 1 MG TABLET PO SCH (09:14)
[2018-04-22] MEDS: SOTALOL HCL 80 MG TABLET PO SCH (09:14)
[2018-04-22] MEDS: ISOSORBIDE MONONITRATE 60 MG TAB.ER.24H PO SCH (09:14)
[2018-04-22] MEDS: BENZONATATE 100 MG CAPSULE PO SCH (09:15)
[2018-04-22] MEDS: MAGNESIUM OXIDE 400 MG TABLET PO SCH (09:16)
[2018-04-22] MEDS: GUAIFENESIN 1,200 MG TABLET PO SCH (09:16)
[2018-04-22] MEDS: ANORO (UMECLIDINIUM & VILANTEROL) 62.5MCG/25MCG INH IH SCH (10:06)
--- NOTE | 2018-04-22 14:18 | Discharge Summary ---
DATE: 04/22/2018 DATE OF ADMISSION: 04/16/2018 DISCHARGE DIAGNOSES: 1. Acute exacerbation of chronic obstructive pulmonary disease. He no longer requires oxygen therapy. 2. Right upper quadrant pain, slightly elevated liver enzymes, could be secondary to antibiotics versus fatty liver. On the ultrasound he had hepatosteatosis. He should be followed up as an outpatient and recheck the liver enzymes. ALT was up to 94. AST was 28, just slightly up. 3. History of congestive heart failure. Dr. 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 4. History of coronary artery disease. 5. History of atrial fibrillation, currently in normal sinus rhythm and on Coumadin therapy managed by Dr. Jenkins. 6. Acute bronchitis and exacerbation of chronic obstructive pulmonary disease, on IV Zosyn 4.5 g q.6 h. for 7 more days. This was started because of the concern of pseudomonas and recent heart admission at [facility] for fluid retention and their worry of a hospital-acquired infection. Seven more days of IV Zosyn via PICC line. ATTENDING PHYSICIAN: Rashad Corcoran DO. I had the dubious honor of having to do the discharge summary with a shift of changing doctors, and I came on on the day of discharge. I did have the fortunate honor of seeing the in the emergency department on the day of admission. He is much better. REASON FOR HOSPITALIZATION: Dyspnea. This 58-year-old male presented to the emergency department with being short of breath, cough, and yellow sputum. Pulse ox was 83% on room air. He was sick for about a week and recently started on azithromycin by his family doctor. He also was in the hospital at [facility] 3 weeks ago for fluid retention and congestive heart failure. He had a heart cath done at that time which was negative for any significant coronary artery disease. Discussed the case with Dr. Jenkins's partner prior to admission at [facility]. He is on Coumadin through Dr. Jenkins's office and being managed there for atrial fib. Currently he is in normal sinus rhythm. SIGNIFICANT FINDINGS: His pulse ox on room air initially was 83%. Chest x-ray showing no acute changes in the emergency department. CTA of the chest to rule out PE was negative with subcentimeter low-density lesions in the liver. Will be followed up as an outpatient. He had an ultrasound of the abdomen and it showed hepatosteatosis. That was done because of some right upper quadrant discomfort which is better now and liver enzymes were slightly elevated which could have been elevated by multifactorial reasons; infection, antibiotic use, and he is overweight. EKG showing normal sinus rhythm, no acute changes. WBC 19,000, most likely a steroid effect. He is doing clinically way better. His segs are 70, bands are 1. ALT was 94, AST was 28. His last liver enzymes are pending. His last PT is pending, which is the day of discharge. His procalcitonin was 0.032, negative. His vital signs are normal. Temperature was 98 degrees Fahrenheit, pulse 62, blood pressure 138/81, respiratory rate 18, pulse ox 95% on room air. He walked yesterday 500 feet and his pulse ox did not drop below 90%. He does not qualify for oxygen at this time. He is much improved with his oxygen requirements. His activity level is better. He is still tired he said but much better. His appetite is normal. THERAPY PROVIDED: The patient was initially started in Unasyn and then switched over to Zosyn because of the current concern of pseudomonas and recent hospitalization for congestive heart failure and a heart cath [address] Jenkins at [facility]. He gradually improved. His oxygen requirements were back down to nothing yesterday. There was some concern about his white count being 19,000. They kept him an extra day. However, reviewing his clinical presentation, it is most likely a steroid effect. He was on prednisone, which was stopped yesterday, but at this point I do not want to stop it suddenly. I would rather taper it off, and we will give him a tapering course of prednisone, and the white count will gradually improve when this gradually comes off but I think it is more beneficial for his breathing to taper off the prednisone at this time. HOSPITAL COURSE: He is much improved. CONDITION ON DISCHARGE: Much improved. DISCHARGE INSTRUCTIONS: Follow up with Dr. Childs, his primary doctor, in 4-7 days. Follow up with the sap bw architect as scheduled. Follow up with Dr. Jenkins for his use of Coumadin and follow up for his heart diseases, which will be scheduled by the patient. Activity as tolerated. Does not require oxygen at this time. DISCHARGE MEDICATION: This is always a nightmare since we went to the computer. Look at my progress note that I wrote out. 1. IV Zosyn 4.5 g q.6 h. for 7 days through the PICC line. 2. Prednisone taper started at 40 mg, 10 mg pills, 4 pills a day for 3 days, 3 pills a day for 3 days, 2 pills a day for 3 days, then 1 pill a day for 3 days. 3. The patient requested Atrovent and albuterol nebulization solution q.4 h. while awake, and I wrote prescriptions for those because he said they are cheaper than going to the [facility]. He also has Dulera at home. Use that 1 puff daily which is also equivalent to [facility] Ell[facility]a. 4. His Coumadin has been increased to 2.5 mg at h.s. He was on 1.5 h.s. We will follow him weekly starting with a PT on Saturday and then weekly after that until Dr. Jenkins stabilizes him. He may go up when he is on his own diet at home or his levels may go down. It is hard to say. 5. Sotalol 80 mg b.i.d. 6. Potassium chloride 20 mEq daily. 7. Omeprazole 40 mg daily. 8. Metformin 500 mg at h.s. Not sure if it is long-acting or not but to continue the same one he has at home. 9. Mag-Ox 400 mg b.i.d. 10. Imdur 60 mg daily. 11. Zetia 10 mg at h.s. 12. Plavix 75 mg daily. 13. Bumex 1 mg b.i.d. 14. Cardura 1 mg at h.s. 15. Mucinex 1200 mg b.i.d. The patient requested not to continue the [facility]. He looked up the cost and it was going to cost him 400 or 500 dollars a month. [facility]
== END 2018-04-22 13:25 | disposition home or self-care (01) | DRG 191 ==
LOC: ER 13:57 → MEDSURG 18:39
PROVIDERS: ADMIT Internal Medicine; ATTEND Internal Medicine
DX: J44.1 Chronic obstructive pulmonary disease with (acute) exacerbation (principal); I25.110 Atherosclerotic heart disease of native coronary artery with unstable angina pectoris; I25.10 Atherosclerotic heart disease of native coronary artery without angina pectoris; Z95.811 Presence of heart assist device; J40 Bronchitis, not specified as acute or chronic; I50.9 Heart failure, unspecified; R07.9 Chest pain, unspecified; I48.2 Chronic atrial fibrillation; Z79.01 Long term (current) use of anticoagulants; R05 Cough; R10.11 Right upper quadrant pain; R09.02 Hypoxemia; I10 Essential (primary) hypertension; E78.00 Pure hypercholesterolemia, unspecified; K21.9 Gastro-esophageal reflux disease without esophagitis; Z95.5 Presence of coronary angioplasty implant and graft; Z87.891 Personal history of nicotine dependence
CPT/HCPCS: 36416; 36569; 36600; 71045; 71046; 71260; 76700; 80048; 80053; 81003; 82375; 82803; 82948; 83036; 83880; 84145; 84460; 84484; 85027; 85610; 85730; 86803; 87340; 87400; 93005; 93010; 94618; 94640; 94760; 94761; 96374; 99223; 99232; 99239; 99285; J0295; J1940; J2543; J2930; J7512; J7613